=== PATIENT | male | born 1980 | race African-American/Black ===

== ENCOUNTER 2019-10-30 18:33 | Inpatient (IN) | payer BC ==
[2019-10-30 18:45] VITALS: BMI 25.9
[2019-10-30] MEDS ORDERED: Bisacodyl 10 MG SUPP PR PRN (20:36)
[2019-10-30] MEDS ORDERED: Polyethylene Glycol 3350 17 GM Packet PO PRN (20:39)
[2019-10-30] MEDS ORDERED: Haloperidol 1 MG TAB PO PRN (20:39)
[2019-10-30] MEDS: Amlodipine 5 MG TAB PO SCH (21:37)
[2019-10-30] MEDS: Voriconazole 50 MG TAB PO SCH (21:38)
[2019-10-30] MEDS: Docusate 100 MG CAP PO SCH (21:38)
[2019-10-30] MEDS: Metoprolol Tartrate 25 MG TAB PO SCH (21:38)
[2019-10-30] MEDS: Potassium Chloride 20 MEQ TAB PO SCH (21:38)
[2019-10-30] MEDS: Dexamethasone 1 MG TAB PO SCH (21:39)
[2019-10-30] MEDS: Atorvastatin Calcium 20 MG TAB PO SCH (21:39)
[2019-10-31 06:00] LABS: ALT (SGPT) 194 U/L (8-55); AST (SGOT) 32 U/L (5-34); Albumin 3.1 g/dL (3.5-5.0); Alkaline Phosphatase 100 U/L (40-110); Anion Gap 13 mmol/L (10-20); BUN (Urea Nitrogen) 20 mg/dL (8.9-20.6); Bilirubin, Total 0.3 mg/dL (0.2-1.2); Calc. Creatinine Clearance 250 mL/min (70-130); Calcium 8.8 mg/dL (7.8-10.44); Carbon Dioxide 26 mmol/L (22-29); Chloride 110 mmol/L (98-107); Estimated GFR-MDRD Greater than 90; Globulin 2.6 g/dL (2.4-3.5); Glucose 134 mg/dL (70-105); Potassium 3.8 mmol/L (3.5-5.1); Protein, Total 5.7 g/dL (6.0-8.3); Sodium 145 mmol/L (136-145)
[2019-10-31 06:05] LABS: #Basophils 0.1 thou/uL (0.0-0.2); #Lymphocytes 0.3 thou/uL (1.20-3.40); #Monocytes 0.5 thou/uL (0.11-0.59); #Neutrophils 12.6 thou/uL (1.40-6.50); %Basophils 0.6 % (0.0-1.0); %Lymphocytes 2.2 % (21.0-51.0); %Monocytes 3.5 % (0.0-10.0); %Neutrophils 93.7 % (42.0-75.0); Hemoglobin 14.3 g/dL (14.0-18.0); Mean Corpuscular HGB CONC 33.4 g/dL (32.0-36.0); Mean Corpuscular Hemoglobin 29.8 pg (27.0-31.0); Mean Corpuscular Volume 89.2 fL (78.0-98.0); Mean Platelet Volume 11.5 fL (7.4-10.4); Platelet Count 88 thou/uL (130-400); Platelet Morphology Comment Appears Decreased; RBC Distribution Width 11.9 % (11.5-14.5); RBC Morphology Normal; Red Blood Cell (RBC) Count 4.81 mill/uL (4.70-6.10); White Blood Cell (WBC) Count 13.4 thou/uL (4.8-10.8)
[2019-10-31] MEDS ORDERED: FLU VACC QS2019-20(6MOS UP)/PF 60 MCG/0.5 ML SYRINGE IM ONE (09:00)
[2019-10-31] MEDS: Docusate 100 MG CAP PO SCH ×2 (09:52→22:08)
[2019-10-31] MEDS: Dexamethasone 1 MG TAB PO SCH ×2 (09:52→22:08)
[2019-10-31] MEDS: Voriconazole 50 MG TAB PO SCH ×2 (09:52→22:08)
[2019-10-31] MEDS: Potassium Chloride 20 MEQ TAB PO SCH ×2 (09:53→22:08)
[2019-10-31] MEDS: Metoprolol Tartrate 25 MG TAB PO SCH ×2 (09:53→22:08)
[2019-10-31] MEDS: Amlodipine 5 MG TAB PO SCH ×2 (09:53→22:07)
--- NOTE | 2019-10-31 13:45 | HP ---
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 BRIEF HISTORY: This is an unfortunate 39-year-old male, who apparently underwent sinus surgery a few months ago. He apparently has had on and off issues with the sinuses since then and headaches, and presented to the hospital with fever and chills for 2 days with generalized weakness. He apparently has had a visit to the ER 2 weeks after the surgery, where CT scan showed lytic lesions in the sphenoid sinus and was treated with antibiotics. The CT done in the prior admission on October 11 was consistent with meningitis and cerebritis, and was started on vancomycin, cefepime, and antifungals. 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 He unfortunately also developed a cerebral infarction resulting in right-sided weakness. He has been followed by Dr. Duarte, who after completion of his IV amphotericin B has been switched to oral voriconazole. Estimated length of treatment to be at least a few months. The patient is resting in bed and is just oriented to self. No family at bedside. He is able to tolerate p.o. intake. He does have some aphasia. He also was noted to have some encephalopathy from his meningitis and his CVA. PAST MEDICAL HISTORY: Sinus problems requiring surgery. ALLERGIES: NO KNOWN DRUG ALLERGIES. FAMILY HISTORY: Noncontributory to current admission. PSYCHOSOCIAL HISTORY: Denies any tobacco or alcohol or recreational drug abuse. REVIEW OF SYSTEMS: CARDIOVASCULAR: Denies any chest pain, shortness of breath, palpitations, PND, orthopnea, or pedal edema. RESPIRATORY: Denies any chronic cough, expectoration, or pleuritic-type chest pain. GASTROINTESTINAL: Denies any nausea, vomiting, diarrhea, constipation, hematemesis, melena, or hematochezia. GENITOURINARY: Denies any frequency, urgency, dysuria, or hematuria. CENTRAL NERVOUS SYSTEM: Right-sided weakness from his recent CVA, persistent aphasia. Does have some cognitive deficits as well. EXTREMITIES: Denies any arthralgias. SKIN: Denies any rash. HEENT: Denies any difficulty with swallowing or hearing. PHYSICAL EXAMINATION: GENERAL: This is a pleasant 39-year-old male, resting comfortably in bed, and denies any concerns. He is oriented to self. No family at bedside. Discussed with nursing. HEENT: Normocephalic and atraumatic. Pupils are equally reacting to light and accommodation. No JVD, thyromegaly, cervical lymphadenopathy, or throat exudates. No carotid bruits. CARDIOVASCULAR: S1 and S2 plus. RESPIRATORY: Normal vesicular breath sounds. ABDOMEN: Soft, nontender. Bowel sounds heard in all quadrants. EXTREMITIES: Without cyanosis or clubbing. CENTRAL NERVOUS SYSTEM: Awake, oriented to self. Does have persistent dysphagia. He does have right-sided weakness. VITAL SIGNS: He is afebrile. Heart rate is 97, respirations 16, oxygen saturation 96% room air, blood pressure 132/74. LABORATORY DATA: Laboratory values done this morning shows a white count of 13.4 improving, hemoglobin and hematocrit are 14 and 41.1. Sodium 141, potassium 3.9, BUN and creatinine is 19 and 0.53. IMPRESSION: 1. Fungal sinusitis and meningitis. 2. CVA with right-sided weakness. 3. Recent sinus surgery. 4. Weakness and deficits from his CVA requiring therapy. 5. Improving leukocytosis. PLAN: 1. Continue discharge medications. 2. Nutritional support. 3. Monitor neuro status. 4. PT/OT eval and treat. 5. DVT prophylaxis with PlexiPulses. 6. Decubitus precaution. 7. Stress ulcer prophylaxis. 8. Monitor cognition. 9. Discussed with the patient in detail and all questions answered. 10. No family at bedside. Job ID: [id number]
[2019-10-31] MEDS: Atorvastatin Calcium 20 MG TAB PO SCH (22:07)
[2019-11-01] MEDS: Potassium Chloride 20 MEQ TAB PO SCH ×2 (08:40→21:23)
[2019-11-01] MEDS: Amlodipine 5 MG TAB PO SCH ×2 (08:40→21:25)
[2019-11-01] MEDS: Dexamethasone 1 MG TAB PO SCH ×2 (08:40→21:24)
[2019-11-01] MEDS: Docusate 100 MG CAP PO SCH ×2 (08:41→21:25)
[2019-11-01] MEDS: Voriconazole 50 MG TAB PO SCH ×2 (08:41→21:24)
[2019-11-01] MEDS: Metoprolol Tartrate 25 MG TAB PO SCH ×2 (08:42→21:24)
--- NOTE | 2019-11-01 13:40 | PRG ---
DATE OF SERVICE: 11/01/2019 SUBJECTIVE: Mr. Santamaria is up in bed. He is getting ready to participate with therapy. He apparently developed significant tachycardia when they got him up in the chair with occupational therapy and so they put him back in bed probably due to deconditioning and that they need to try GIA hose and then continue to work with him to get his conditioning back up. OBJECTIVE: VITAL SIGNS: He is afebrile, heart rate 74, respirations 16, oxygen saturation 98% on room air, blood pressure 125/74. This was this morning right after occupational therapy, it was 116. CARDIOVASCULAR: S1 and S2 plus. Rate and rhythm regular when I examined him with a heart rate of about 82. RESPIRATORY: Normal vesicular breath sounds. ABDOMEN: Soft, nontender. Bowel sounds heard in all quadrants. EXTREMITIES: Without cyanosis or clubbing. CENTRAL NERVOUS SYSTEM: Residual right-sided weakness with persistent dysphagia. IMPRESSION: 1. Fungal meningitis and sinusitis. 2. Left hemispheric cerebrovascular accident with right-sided weakness and dysphagia. 3. Hypertension. 4. Dyslipidemia. 5. Deconditioning. 6. Sinus tachycardia, likely due to deconditioning. PLAN: 1. Continue current medications. 2. Heart healthy diet. 3. Aspiration precautions. 4. DVT prophylaxis with PlexiPulses. 5. Decubitus precautions. 6. Stress ulcer prophylaxis. 7. Slowly wean him off the steroids. 8. Continue therapy. 9. Routine laboratory values. Job ID: [id number]
[2019-11-01] MEDS: Acetaminophen 500 MG TAB PO PRN (14:53)
[2019-11-01] MEDS: Atorvastatin Calcium 20 MG TAB PO SCH (21:25)
[2019-11-02] MEDS ORDERED: Phenylephrine HCl 0.25% SUPP PR SCH (09:00)
[2019-11-02] MEDS ORDERED: Hydrocortisone Acetate 25 MG Suppository PR SCH (10:00)
[2019-11-02] MEDS: Potassium Chloride 20 MEQ TAB PO SCH ×2 (10:11→21:21)
[2019-11-02] MEDS: Voriconazole 50 MG TAB PO SCH ×2 (10:11→21:22)
[2019-11-02] MEDS: Docusate 100 MG CAP PO SCH ×2 (10:11→21:22)
[2019-11-02] MEDS: Amlodipine 5 MG TAB PO SCH ×2 (10:11→21:22)
[2019-11-02] MEDS: Metoprolol Tartrate 25 MG TAB PO SCH ×2 (10:11→21:22)
[2019-11-02] MEDS: Dexamethasone 1 MG TAB PO SCH ×2 (10:12→21:21)
[2019-11-02] MEDS: Acetaminophen 500 MG TAB PO PRN (12:14)
[2019-11-02] MEDS: Hydrocortisone Acetate 25 MG Suppository PR SCH (21:21)
[2019-11-02] MEDS: Atorvastatin Calcium 20 MG TAB PO SCH (21:22)
[2019-11-03 06:12] LABS: Hemoglobin 14.3 g/dL (14.0-18.0); Lymphocytes 7 % (21-51); MDiff Complete? YES; Mean Corpuscular Hemoglobin 29.2 pg (27.0-31.0); Mean Corpuscular Volume 91.3 fL (78.0-98.0); Mean Platelet Volume 11.4 fL (7.4-10.4); Monocytes 6 % (0-10); Neutrophil 87 % (42-75); Platelet Count 81 thou/uL (130-400); Platelet Morphology Comment Appears Decreased; RBC Distribution Width 12.5 % (11.5-14.5); Red Blood Cell (RBC) Count 4.88 mill/uL (4.70-6.10); Stomatocytes MODERATE= 6-15 cells (100X) (0-1/hpf); White Blood Cell (WBC) Count 10.3 thou/uL (4.8-10.8)
[2019-11-03] MEDS: Voriconazole 50 MG TAB PO SCH ×2 (09:21→21:27)
[2019-11-03] MEDS: Potassium Chloride 20 MEQ TAB PO SCH ×2 (09:21→21:26)
[2019-11-03] MEDS: Dexamethasone 1 MG TAB PO SCH ×2 (09:21→21:26)
[2019-11-03] MEDS: Amlodipine 5 MG TAB PO SCH ×2 (09:21→21:26)
[2019-11-03] MEDS: Metoprolol Tartrate 25 MG TAB PO SCH ×2 (09:22→21:27)
[2019-11-03] MEDS: Docusate 100 MG CAP PO SCH ×2 (09:23→21:27)
[2019-11-03] MEDS: Hydrocortisone Acetate 25 MG Suppository PR SCH ×2 (09:23→21:28)
[2019-11-03] MEDS: Acetaminophen 500 MG TAB PO PRN ×2 (12:56→21:27)
[2019-11-03] MEDS: Atorvastatin Calcium 20 MG TAB PO SCH (21:27)
[2019-11-04] MEDS: Amlodipine 5 MG TAB PO SCH ×2 (08:56→21:53)
[2019-11-04] MEDS: Voriconazole 50 MG TAB PO SCH ×2 (08:56→21:52)
[2019-11-04] MEDS: Potassium Chloride 20 MEQ TAB PO SCH ×2 (08:57→21:51)
[2019-11-04] MEDS: Metoprolol Tartrate 25 MG TAB PO SCH ×2 (08:57→21:52)
[2019-11-04] MEDS: Dexamethasone 1 MG TAB PO SCH ×2 (08:57→21:52)
[2019-11-04] MEDS: Docusate 100 MG CAP PO SCH ×2 (08:58→21:51)
[2019-11-04] MEDS: Hydrocortisone Acetate 25 MG Suppository PR SCH ×2 (08:58→21:51)
--- NOTE | 2019-11-04 16:31 | PRG ---
DATE OF SERVICE: 11/02/2019 SUBJECTIVE: Mr. Santamaria is resting comfortably. No changes. He was noticed to have some bleeding per rectum and I advised them to start him on some Anusol suppository. We will monitor his vital signs and his complete blood counts. OBJECTIVE: VITAL SIGNS: The patient is afebrile. Heart rate is 90, respirations 20, oxygen saturation 97% on room air, blood pressure 120/70. CARDIOVASCULAR: S1 and S2 plus. RESPIRATORY: Normal vesicular breath sounds. ABDOMEN: Soft, nontender. Bowel sounds heard in all quadrants. EXTREMITIES: Without cyanosis or clubbing. CENTRAL NERVOUS SYSTEM: Deficits from his recent left hemispheric CVA. IMPRESSION: 1. Fungal sinusitis and meningitis. 2. CVA with right-sided weakness. 3. Leukocytosis. 4. Bright red bleeding per rectum. 5. Deconditioning. PLAN: 1. Continue current medications. 2. Nutritional support. 3. Trial of Anusol suppository. 4. Check CBC tomorrow. 5. Monitor for any hemodynamic compromise. 6. DVT and stress ulcer prophylaxis. 7. Decubitus precautions. Job ID: [id number]
--- NOTE | 2019-11-04 16:41 | PRG ---
DATE OF SERVICE: 11/03/2019 SUBJECTIVE: Mr. Santamaria is resting in bed. No further issues with bleeding per rectum. He is tolerating the Anusol suppository. No family at bedside. Discussed with nursing. OBJECTIVE: VITAL SIGNS: He is afebrile. Heart rate is 78, respirations 18, oxygen saturation 98% on room air, blood pressure 127/70. CARDIOVASCULAR: S1 and S2 plus. RESPIRATORY: Normal vesicular breath sounds. ABDOMEN: Soft, nontender. Bowel sounds heard in all quadrants. EXTREMITIES: Without cyanosis or clubbing. CENTRAL NERVOUS SYSTEM: Persistent right-sided weakness and dysphasia. LABORATORY VALUES: White count is down to normal at 10.3, hemoglobin and hematocrit are stable at 14.3 and 44.6. BMP was not done. IMPRESSION: 1. Bright red bleeding per rectum, resolved. 2. Right-sided weakness due to left hemispheric CVA. 3. Fungal meningitis and sinusitis. 4. Deconditioning. 5. Resolved leukocytosis. PLAN: 1. Continue current medications. 2. Nutritional support. 3. Monitor neuro status. 4. DVT and stress ulcer prophylaxis. 5. Decubitus precautions. 6. Physical therapy. 7. Routine laboratory values. Job ID: [id number]
--- NOTE | 2019-11-04 16:54 | PRG ---
DATE OF SERVICE: 11/04/2019 SUBJECTIVE: Mr. Santamaria had just finished lunch. He is up in bed. He denies any concerns. Discussed with nursing. OBJECTIVE: VITAL SIGNS: He is afebrile. Heart rate is 86, respirations 18, oxygen saturation 98% on room air, blood pressure 124/79. CARDIOVASCULAR: S1 and S2 plus. RESPIRATORY: Normal vesicular breath sounds. ABDOMEN: Soft, nontender. Bowel sounds heard in all quadrants. EXTREMITIES: Without cyanosis or clubbing. CENTRAL NERVOUS SYSTEM: Persistent right-sided weakness and dysphasia IMPRESSION: 1. Resolving fungal meningitis and sinusitis. 2. Left hemispheric CVA with right-sided weakness and dysphasia 3. Significant deconditioning. PLAN: 1. Continue current medications. 2. Routine laboratory values. 3. Nutritional support. 4. Physical therapy. 5. DVT and stress ulcer prophylaxis. 6. Discussed with the patient and nursing in detail. 7. No family at bedside. Job ID: [id number] MTDD
[2019-11-04] MEDS: Atorvastatin Calcium 20 MG TAB PO SCH (21:53)
[2019-11-04] MEDS: Acetaminophen 500 MG TAB PO PRN (21:53)
[2019-11-05] MEDS: Docusate 100 MG CAP PO SCH ×2 (09:33→21:04)
[2019-11-05] MEDS: Dexamethasone 1 MG TAB PO SCH ×2 (09:33→21:03)
[2019-11-05] MEDS: Potassium Chloride 20 MEQ TAB PO SCH ×2 (09:33→21:03)
[2019-11-05] MEDS: Metoprolol Tartrate 25 MG TAB PO SCH ×2 (09:34→21:04)
[2019-11-05] MEDS: Voriconazole 50 MG TAB PO SCH ×2 (09:34→21:04)
[2019-11-05] MEDS: Hydrocortisone Acetate 25 MG Suppository PR SCH ×2 (09:35→21:03)
[2019-11-05] MEDS: Amlodipine 5 MG TAB PO SCH ×2 (09:35→21:02)
--- NOTE | 2019-11-05 14:00 | PRG ---
DATE OF SERVICE: 11/05/2019 SUBJECTIVE: Mr. Santamaria is up in the hallway, working with the therapy. He does not have his GIA hose on. He is somnolent, but arousable. OBJECTIVE: VITAL SIGNS: He is afebrile. Heart rate 79, respirations 16, oxygen saturation 98% on room air, blood pressure 120/72. CARDIOVASCULAR: S1 and S2 plus. RESPIRATORY: Normal vesicular breath sounds. ABDOMEN: Soft and nontender. Bowel sounds heard in all quadrants. EXTREMITIES: Without cyanosis or clubbing. CENTRAL NERVOUS SYSTEM: Persistent deficits from his left hemispheric CVA and his meningitis. IMPRESSION: 1. Fungal meningitis and sinusitis. 2. Left hemispheric cerebrovascular accident with right-sided weakness and .. 3. Significant deconditioning. 4. Episodes of sinus tachycardia due to deconditioning. PLAN: 1. Reinforced use of GIA hose while up. 2. Nutritional support. 3. DVT and stress ulcer prophylaxis. 4. Decubitus precautions. 5. Continue physical therapy and occupational therapy. 6. Routine laboratory values. 7. No family at bedside. Job ID: [id number]
[2019-11-05] MEDS: Acetaminophen 500 MG TAB PO PRN (21:02)
[2019-11-05] MEDS: Atorvastatin Calcium 20 MG TAB PO SCH (21:03)
[2019-11-06] MEDS: Amlodipine 5 MG TAB PO SCH ×2 (09:50→20:32)
[2019-11-06] MEDS: Docusate 100 MG CAP PO SCH ×2 (09:51→20:33)
[2019-11-06] MEDS: Potassium Chloride 20 MEQ TAB PO SCH ×2 (09:51→20:32)
[2019-11-06] MEDS: Dexamethasone 1 MG TAB PO SCH ×2 (09:52→20:33)
[2019-11-06] MEDS: Voriconazole 50 MG TAB PO SCH ×2 (09:53→20:32)
[2019-11-06] MEDS: Metoprolol Tartrate 25 MG TAB PO SCH ×2 (09:53→20:32)
[2019-11-06] MEDS: Hydrocortisone Acetate 25 MG Suppository PR SCH ×2 (09:57→20:33)
--- NOTE | 2019-11-06 13:29 | PRG ---
DATE OF SERVICE: 11/06/2019 SUBJECTIVE: Mr. Santamaria is doing well. He has been moved up to 145. He just finished lunch. He denies any questions or concerns. Discussed with nursing and no further bleeding per rectum. OBJECTIVE: VITAL SIGNS: He is afebrile. Heart rate 100, respirations 20, oxygen saturation 99% on room air, and blood pressure 130/78. CARDIOVASCULAR SYSTEM: S1 and S2 plus. RESPIRATORY SYSTEM: Normal vesicular breath sounds. ABDOMEN: Soft and nontender. Bowel sounds heard in all quadrants. EXTREMITIES: Without cyanosis or clubbing. CENTRAL NERVOUS SYSTEM: Persistent deficits from his left hemispheric cerebrovascular accident. IMPRESSION: 1. Fungal meningitis and sinusitis. 2. Left hemispheric cerebrovascular accident with right-sided weakness and dysphagia. 3. Significant deconditioning. 4. Improving sinus tachycardia, likely due to improving deconditioning. PLAN: 1. Continue current medications. 2. Nutritional support. 3. DVT and stress ulcer prophylaxis. 4. Continue GIA hose while awake. 5. Physical therapy. 6. Routine laboratory values. Job ID: [id number]
[2019-11-06] MEDS: Atorvastatin Calcium 20 MG TAB PO SCH (20:32)
[2019-11-06] MEDS: Acetaminophen 500 MG TAB PO PRN (20:32)
[2019-11-07] MEDS: Potassium Chloride 20 MEQ TAB PO SCH ×2 (08:41→21:01)
[2019-11-07] MEDS: Voriconazole 50 MG TAB PO SCH ×2 (08:42→21:01)
[2019-11-07] MEDS: Dexamethasone 1 MG TAB PO SCH ×2 (08:42→21:00)
[2019-11-07] MEDS: Docusate 100 MG CAP PO SCH ×2 (08:42→21:00)
[2019-11-07] MEDS: Metoprolol Tartrate 25 MG TAB PO SCH ×2 (08:42→21:01)
[2019-11-07] MEDS: Amlodipine 5 MG TAB PO SCH ×2 (08:43→20:59)
[2019-11-07] MEDS: Hydrocortisone Acetate 25 MG Suppository PR SCH ×2 (08:44→21:01)
--- NOTE | 2019-11-07 12:50 | PRG ---
DATE OF SERVICE: 11/07/2019 SUBJECTIVE: Mr. Santamaria is doing well, just finished lunch. Denies any questions or concerns. No family at bedside. Discussed with nursing. OBJECTIVE: VITAL SIGNS: He is afebrile, heart rate 88, respirations 16, oxygen saturation 96% on room air, blood pressure 126/65. CARDIOVASCULAR SYSTEM: S1 and S2 plus. RESPIRATORY SYSTEM: Normal vesicular breath sounds. ABDOMEN: Soft and nontender. Bowel sounds heard in all quadrants. EXTREMITIES: Without cyanosis or clubbing. CENTRAL NERVOUS SYSTEM: Persistent deficits from his CVA. IMPRESSION: 1. 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 2. Fungal sinusitis and meningitis. 3. Improving sinus tachycardia. PLAN: 1. Continue current medications. 2. Nutritional support. 3. Continue physical therapy. 4. Continue GIA hose. 5. Routine laboratory values. 6. DVT and stress ulcer prophylaxis. Job ID: [id number]
[2019-11-07] MEDS: Atorvastatin Calcium 20 MG TAB PO SCH (21:00)
[2019-11-08] MEDS: Metoprolol Tartrate 25 MG TAB PO SCH ×2 (09:34→21:36)
[2019-11-08] MEDS: Potassium Chloride 20 MEQ TAB PO SCH ×2 (09:34→21:34)
[2019-11-08] MEDS: Voriconazole 50 MG TAB PO SCH ×2 (09:34→21:36)
[2019-11-08] MEDS: Amlodipine 5 MG TAB PO SCH ×2 (09:35→21:36)
[2019-11-08] MEDS: Hydrocortisone Acetate 25 MG Suppository PR SCH ×2 (09:35→21:34)
[2019-11-08] MEDS: Dexamethasone 1 MG TAB PO SCH ×2 (09:35→21:37)
[2019-11-08] MEDS: Docusate 100 MG CAP PO SCH ×2 (09:35→21:34)
--- NOTE | 2019-11-08 13:42 | PRG ---
DATE OF SERVICE: 11/08/2019 SUBJECTIVE: Mr. Santamaria is doing the same. Denies any complaints. Resting comfortably. OBJECTIVE: VITAL SIGNS: He is afebrile. Heart rate 78, respirations 20, oxygen saturation 98% on room air, blood pressure 124/76. CARDIOVASCULAR: S1 and S2 plus. RESPIRATORY: Normal vesicular breath sounds. ABDOMEN: Soft, nontender. Bowel sounds heard in all quadrants. EXTREMITIES: Without cyanosis or clubbing. Peripheral pulses are palpable. CENTRAL NERVOUS SYSTEM: Grossly nonfocal except for persistent deficits from his left hemispheric cerebrovascular accident. IMPRESSION: 1. Left hemispheric cerebrovascular accident with right-sided weakness and dysphagia. 2. Fungal meningitis and sinusitis. 3. Deconditioning. 4. Sinus tachycardia, improving. PLAN: 1. Continue current medications. 2. Nutritional support. 3. Aspiration precautions. 4. Monitor neuro status. 5. Review old records and start titrating his steroids. 6. Continue therapy. 7. Routine laboratory values. Job ID: [id number]
[2019-11-08] MEDS: Atorvastatin Calcium 20 MG TAB PO SCH (21:36)
[2019-11-09] MEDS: Voriconazole 50 MG TAB PO SCH ×2 (08:56→21:31)
[2019-11-09] MEDS: Metoprolol Tartrate 25 MG TAB PO SCH ×2 (08:57→21:29)
[2019-11-09] MEDS: Docusate 100 MG CAP PO SCH ×2 (08:58→21:34)
[2019-11-09] MEDS: Potassium Chloride 20 MEQ TAB PO SCH ×2 (08:58→21:29)
[2019-11-09] MEDS: Dexamethasone 1 MG TAB PO SCH ×2 (08:59→21:32)
[2019-11-09] MEDS: Amlodipine 5 MG TAB PO SCH ×2 (08:59→21:32)
--- NOTE | 2019-11-09 09:03 | PRG ---
DATE OF SERVICE: 11/09/2019 SUBJECTIVE: Mr. Santamaria is up in bed. He just finished breakfast. Remains pleasantly confused. Denies any questions or concerns. Discussed with nursing. OBJECTIVE: VITAL SIGNS: He is afebrile. Heart rate is not posted yet from this morning, but last night it was 111; respiratory rate 20; oxygen saturation 97% on room air; and blood pressure 135/91. CARDIOVASCULAR: S1 and S2 plus. Sinus tachycardia. RESPIRATORY: Normal vesicular breath sounds. ABDOMEN: Soft, nontender. Bowel sounds heard in all quadrants. EXTREMITIES: Without cyanosis or clubbing. CENTRAL NERVOUS SYSTEM: Persistent right-sided weakness. IMPRESSION: 1. Fungal meningitis and sinusitis. 2. 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 3. Hypertension. 4. Dyslipidemia. 5. Deconditioning with sinus tachycardia. PLAN: 1. Continue current medications. 2. Heart healthy diet. 3. DVT prophylaxis with PlexiPulses. 4. Decubitus precautions. 5. Stress ulcer prophylaxis. 6. Continue physical therapy. 7. Routine laboratory values. 8. No family at bedside. Job ID: [id number]
[2019-11-09] MEDS: Atorvastatin Calcium 20 MG TAB PO SCH (21:31)
[2019-11-10] MEDS: Docusate 100 MG CAP PO SCH ×2 (08:32→21:29)
[2019-11-10] MEDS: Metoprolol Tartrate 25 MG TAB PO SCH ×2 (08:32→21:26)
[2019-11-10] MEDS: Potassium Chloride 20 MEQ TAB PO SCH ×2 (08:33→21:26)
[2019-11-10] MEDS: Amlodipine 5 MG TAB PO SCH ×2 (08:33→21:28)
[2019-11-10] MEDS: Dexamethasone 1 MG TAB PO SCH ×2 (08:33→21:29)
[2019-11-10] MEDS: Voriconazole 50 MG TAB PO SCH ×2 (08:34→21:28)
--- NOTE | 2019-11-10 15:12 | PRG ---
DATE OF SERVICE: 11/10/2019 SUBJECTIVE: Mr. Santamaria is doing the same. Resting in bed. Denies any complaints. Still with significant dysphagia and cognitive dysfunction. OBJECTIVE: VITAL SIGNS: He is afebrile. Heart rate 86, respirations 18, oxygen saturation 98% on room air, blood pressure 129/86. CARDIOVASCULAR: S1 and S2 plus. RESPIRATORY: Normal vesicular breath sounds. ABDOMEN: Soft and nontender. Bowel sounds heard in all quadrants. EXTREMITIES: Without cyanosis or clubbing. CENTRAL NERVOUS SYSTEM: Persistent, but improving deficits from his left hemispheric cerebrovascular accident. IMPRESSION: 1. Fungal sinusitis and meningitis. 2. Left hemispheric cerebrovascular accident with right-sided weakness and dysphagia. 3. Hypertension. 4. Dyslipidemia. 5. Deconditioning. PLAN: 1. Continue current medications. 2. Heart healthy diet. 3. Monitor neuro status. 4. Monitor blood pressure and adjust medications as needed. 5. Aspiration precaution. 6. Continue PT, OT. 7. Routine laboratory values. Job ID: [id number]
[2019-11-10] MEDS: Atorvastatin Calcium 20 MG TAB PO SCH (21:29)
[2019-11-11] MEDS: Docusate 100 MG CAP PO SCH ×2 (08:23→21:14)
[2019-11-11] MEDS: Amlodipine 5 MG TAB PO SCH ×2 (08:23→21:14)
[2019-11-11] MEDS: Dexamethasone 1 MG TAB PO SCH ×2 (08:23→21:13)
[2019-11-11] MEDS: Potassium Chloride 20 MEQ TAB PO SCH ×2 (08:24→21:14)
[2019-11-11] MEDS: Voriconazole 50 MG TAB PO SCH ×2 (08:24→21:12)
[2019-11-11] MEDS: Metoprolol Tartrate 25 MG TAB PO SCH ×2 (08:27→21:10)
--- NOTE | 2019-11-11 16:40 | PRG ---
DATE OF SERVICE: 11/11/2019 SUBJECTIVE: Mr. Santamaria is doing the same, resting comfortably. Denies any concerns. No family at bedside. Discussed with nursing. OBJECTIVE: VITAL SIGNS: He is afebrile. Heart rate is 114, respirations 18, oxygen saturation 99% on room air, blood pressure 124/85. This was again from 8:00 this morning. On examination, his heart rate is 72. CARDIOVASCULAR: S1 and S2 plus. RESPIRATORY: Normal vesicular breath sounds. ABDOMEN: Soft, nontender. Bowel sounds heard in all quadrants. EXTREMITIES: Without cyanosis or clubbing. CENTRAL NERVOUS SYSTEM: Persistent right-sided weakness and . IMPRESSION: 1. Resolving fungal meningitis and sinusitis. 2. Hypertension. 3. Dyslipidemia. 4. Left hemispheric CVA with improving right-sided weakness and and deconditioning with episodes of sinus tachycardia. PLAN: 1. Continue current medications. 2. Heart healthy diet. 3. Monitor neuro status. 4. Physical therapy. 5. Decubitus precautions. 6. Routine laboratory values. 7. Aspiration precautions. 8. Monitor cognition. Job ID: [id number]
[2019-11-11] MEDS: Atorvastatin Calcium 20 MG TAB PO SCH (21:13)
[2019-11-12] MEDS: Docusate 100 MG CAP PO SCH ×2 (08:39→21:32)
[2019-11-12] MEDS: Amlodipine 5 MG TAB PO SCH ×2 (08:39→21:31)
[2019-11-12] MEDS: Potassium Chloride 20 MEQ TAB PO SCH ×2 (08:40→21:31)
[2019-11-12] MEDS: Voriconazole 50 MG TAB PO SCH ×2 (08:41→21:31)
[2019-11-12] MEDS: Metoprolol Tartrate 25 MG TAB PO SCH ×2 (08:41→21:31)
--- NOTE | 2019-11-12 13:30 | PRG ---
DATE OF SERVICE: 11/12/2019 SUBJECTIVE: Mr. Santamaria apparently had an episode of what seems like vasovagal syncope while he was working with therapy. He is pretty much back to his baseline. He is responding better. He is able to answer yes and no now, whereas before he was unable to do so. Encouraged nursing to make sure the patient drinks plenty of fluids. OBJECTIVE: VITAL SIGNS: He is afebrile. Heart rate 115, respirations 18, oxygen saturation 98% on room air, blood pressure 93/50. CARDIOVASCULAR: S1 and S2 plus. RESPIRATORY: Normal vesicular breath sounds. ABDOMEN: Soft, nontender. Bowel sounds heard in all quadrants. EXTREMITIES: Without cyanosis or clubbing. CENTRAL NERVOUS SYSTEM: Persistent deficits from his left hemispheric CVA. IMPRESSION: 1. Hypertension. 2. Dyslipidemia. 3. Fungal meningitis and sinusitis. 4. Left hemispheric cerebrovascular accident with improving right-sided weakness and episode of possible syncope. PLAN: 1. Check labs today, BMP, and CBC. 2. Encourage p.o. fluid intake. 3. Continue therapy. 4. Continue GIA hose. 5. Nutritional support. 6. Discussed with the patient and nursing in detail. All questions answered. Job ID: [id number]
[2019-11-12 14:13] LABS: Anion Gap 17 mmol/L (10-20); BUN (Urea Nitrogen) 40 mg/dL (8.9-20.6); Calc. Creatinine Clearance 158 mL/min (70-130); Calcium 9.4 mg/dL (7.8-10.44); Carbon Dioxide 20 mmol/L (22-29); Chloride 112 mmol/L (98-107); Estimated GFR-MDRD Greater than 90; Glucose 386 mg/dL (70-105); Potassium 5.2 mmol/L (3.5-5.1); Sodium 144 mmol/L (136-145)
[2019-11-12 17:44] LABS: Mean Corpuscular HGB CONC 32.7 g/dL (32.0-36.0); Mean Corpuscular Hemoglobin 29.2 pg (27.0-31.0); Mean Corpuscular Volume 89.3 fL (78.0-98.0); Mean Platelet Volume 9.3 fL (7.4-10.4); Platelet Count 102 thou/uL (130-400); RBC Distribution Width 12.5 % (11.5-14.5); Red Blood Cell (RBC) Count 5.14 mill/uL (4.70-6.10); White Blood Cell (WBC) Count 12.2 thou/uL (4.8-10.8)
[2019-11-12 17:47] LABS: Band 4 % (5-11); Lymphocytes 16 % (21-51); MDiff Complete? YES; Monocytes 4 % (0-10); Neutrophil 76 % (42-75); Platelet Morphology Comment Appears Decreased; RBC Morphology Normal
[2019-11-12] MEDS: Atorvastatin Calcium 20 MG TAB PO SCH (21:31)
[2019-11-13] MEDS ORDERED: Dextrose 50% Abboject 50 ML SYRINGE IVP PRN (06:40)
[2019-11-13] MEDS ORDERED: HumaLOG 300 UNITS/3 ML VIAL SC PRN (06:40)
[2019-11-13] MEDS ORDERED: Dextrose 5% in Water 1,000 ML IV PRN (06:40)
[2019-11-13] MEDS: Potassium Chloride 20 MEQ TAB PO SCH ×2 (09:00→21:13)
[2019-11-13] MEDS: Voriconazole 50 MG TAB PO SCH ×2 (09:00→21:12)
[2019-11-13] MEDS: Docusate 100 MG CAP PO SCH ×2 (09:01→21:13)
[2019-11-13] MEDS: Amlodipine 5 MG TAB PO SCH ×2 (09:01→21:12)
[2019-11-13] MEDS: Metoprolol Tartrate 25 MG TAB PO SCH ×2 (09:01→21:13)
[2019-11-13] MEDS: HumaLOG 300 UNITS/3 ML VIAL SC PRN ×2 (11:19→17:07)
[2019-11-13 12:03] LABS: Hemoglobin A1c 6.8 % (4.0-6.0)
--- NOTE | 2019-11-13 13:19 | PRG ---
DATE OF SERVICE: 11/13/2019 SUBJECTIVE: Mr. Santamaria is doing the same. Denies any complaints. Routine labs done yesterday showed a blood sugar of 371 and his fasting was 168, probably it was related to his steroids. He is currently off his steroids, but I advised them to do A1c as well as do sliding scale coverage. OBJECTIVE: VITAL SIGNS: He is afebrile. Heart rate is 111, blood pressure 130 /84, respirations 18, and oxygen saturation 97%. CARDIOVASCULAR SYSTEM: S1 and S2 plus sinus tachycardia. RESPIRATORY SYSTEM: Normal vesicular breath sounds. ABDOMEN: Soft and nontender. Bowel sounds heard in all quadrants. EXTREMITIES: Without cyanosis or clubbing. CENTRAL NERVOUS SYSTEM: Persistent right-sided weakness, but improving dysphasia. LABORATORY DATA: His A1c is back and it is at 6.8, so we will start him on metformin 500 mg b.i.d. and change his diet to 1800 calorie heart healthy ADA diet. IMPRESSION: 1. Fungal sinusitis and meningitis. 2. Hypertension. 3. Dyslipidemia. 4. Steroid-induced hyperglycemia versus new onset diabetes mellitus. 5. 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 PLAN: 1. Continue current medications. 2. Add metformin 500 mg b.i.d. 3. Change diet to 1800 calorie heart healthy. 4. Accu-Cheks with sliding scale coverage. 5. Continue physical therapy. 6. Routine laboratory values. 7. Discussed with the patient and nursing in detail. All questions answered. Job ID: [id number] MTDD
[2019-11-13] MEDS: metFORMIN 500 MG TAB PO SCH (17:07)
[2019-11-13] MEDS: Acetaminophen 500 MG TAB PO PRN (17:20)
[2019-11-13] MEDS: Atorvastatin Calcium 20 MG TAB PO SCH (21:13)
[2019-11-14] MEDS: Metoprolol Tartrate 25 MG TAB PO SCH ×2 (09:42→21:58)
[2019-11-14] MEDS: Potassium Chloride 20 MEQ TAB PO SCH ×2 (09:42→21:57)
[2019-11-14] MEDS: Amlodipine 5 MG TAB PO SCH ×2 (09:43→21:58)
[2019-11-14] MEDS: Docusate 100 MG CAP PO SCH ×2 (09:43→21:59)
[2019-11-14] MEDS: metFORMIN 500 MG TAB PO SCH ×2 (09:44→16:39)
[2019-11-14] MEDS: Voriconazole 50 MG TAB PO SCH ×2 (09:44→21:57)
--- NOTE | 2019-11-14 12:01 | PRG ---
DATE OF SERVICE: 11/14/2019 SUBJECTIVE: Mr. Santamaria is doing the same. Denies any complaints. Tolerating his medications. His blood sugars are still high. He was just started on the metformin. He is still on Ensure supplements. I advised them to change it to Glucerna and change his diet to consistent carb. He is also on a sliding scale. OBJECTIVE: VITAL SIGNS: He is afebrile. Heart rate 80, respirations 18, oxygen saturation 96% on room air, blood pressure 129/64. CARDIOVASCULAR SYSTEM: S1-S2 plus. RESPIRATORY SYSTEM: Normal vesicular breath sounds. ABDOMEN: Soft, nontender. Bowel sounds heard in all quadrants. EXTREMITIES: Without cyanosis, clubbing. CENTRAL NERVOUS SYSTEM: Persistent right-sided weakness. IMPRESSION: 1. Diabetes mellitus, type 2, new onset. 2. Hypertension. 3. Dyslipidemia. 4. Fungal meningitis and sinusitis. 5. 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 PLAN: 1. Continue current medications. 2. 1800 calorie heart-healthy ADA diet. 3. Accu-Cheks with sliding scale coverage. 4. May need sulfonylurea as given his thin stature. He may not have as much issues with insulin resistance. 5. Continue physical therapy. 6. DVT and stress ulcer prophylaxis. 7. Routine laboratory values. Job ID: [id number]
[2019-11-14] MEDS: HumaLOG 300 UNITS/3 ML VIAL SC PRN (12:15)
[2019-11-14] MEDS ORDERED: HumaLOG 300 UNITS/3 ML VIAL SC SCH (12:15)
[2019-11-14] MEDS: Atorvastatin Calcium 20 MG TAB PO SCH (21:57)
[2019-11-15] MEDS: Amlodipine 5 MG TAB PO SCH ×2 (08:27→21:19)
[2019-11-15] MEDS: Potassium Chloride 20 MEQ TAB PO SCH ×2 (08:27→21:19)
[2019-11-15] MEDS: Voriconazole 50 MG TAB PO SCH ×2 (08:27→21:18)
[2019-11-15] MEDS: Metoprolol Tartrate 25 MG TAB PO SCH ×2 (08:27→21:19)
[2019-11-15] MEDS: Docusate 100 MG CAP PO SCH ×2 (08:27→21:19)
[2019-11-15] MEDS: metFORMIN 500 MG TAB PO SCH ×2 (08:27→16:21)
[2019-11-15] MEDS: HumaLOG 300 UNITS/3 ML VIAL SC PRN (12:41)
--- NOTE | 2019-11-15 13:11 | PRG ---
DATE OF SERVICE: 11/15/2019 SUBJECTIVE: Mr. Santamaria is doing well. His blood sugars are much improved. He is tolerating his medications. OBJECTIVE: VITAL SIGNS: He is afebrile. Heart rate 110, respirations 18, oxygen saturation 98% on room air, blood pressure 109/64. CARDIOVASCULAR: S1 and S2 plus. RESPIRATORY: Normal vesicular breath sounds. ABDOMEN: Soft, nontender. Bowel sounds heard in all quadrants. EXTREMITIES: Without cyanosis or clubbing. CENTRAL NERVOUS SYSTEM: Persistent right-sided weakness. LABORATORY DATA: Blood sugars are 99, 174, 118, and 156. IMPRESSION: 1. Diabetes mellitus, new onset. 2. Hypertension. 3. Dyslipidemia. 4. Fungal meningitis and sinusitis. 5. Left hemispheric CVA with right-sided weakness. PLAN: 1. Continue current medications. 2. 1800 calorie heart healthy ADA diet. 3. Accu-Cheks with sliding scale coverage. 4. Continue physical therapy. 5. Routine laboratory values. 6. We will call his mom, Loan, and give her an update. Job ID: [id number]
[2019-11-15] MEDS: Acetaminophen 500 MG TAB PO PRN (16:21)
[2019-11-15] MEDS: Atorvastatin Calcium 20 MG TAB PO SCH (21:19)
[2019-11-16 05:47] LABS: #Basophils 0.1 thou/uL (0.0-0.2); #Monocytes 0.5 thou/uL (0.11-0.59); #Neutrophils 5.1 thou/uL (1.40-6.50); %Eosinophils 0.4 % (0.0-10.0); %Lymphocytes 14.5 % (21.0-51.0); %Monocytes 6.9 % (0.0-10.0); %Neutrophils 77.2 % (42.0-75.0); Hemoglobin 12.7 g/dL (14.0-18.0); Large Platelets SLIGHT; MDiff Complete? YES; Mean Corpuscular HGB CONC 32.6 g/dL (32.0-36.0); Mean Corpuscular Hemoglobin 28.7 pg (27.0-31.0); Mean Corpuscular Volume 88.1 fL (78.0-98.0); Mean Platelet Volume 11.3 fL (7.4-10.4); Platelet Count 81 thou/uL (130-400); Platelet Morphology Comment Appears Decreased; RBC Distribution Width 12.1 % (11.5-14.5); Red Blood Cell (RBC) Count 4.43 mill/uL (4.70-6.10); White Blood Cell (WBC) Count 6.6 thou/uL (4.8-10.8)
[2019-11-16 06:02] LABS: Anion Gap 14 mmol/L (10-20); BUN (Urea Nitrogen) 18 mg/dL (8.9-20.6); Calc. Creatinine Clearance 220 mL/min (70-130); Calcium 8.9 mg/dL (7.8-10.44); Carbon Dioxide 25 mmol/L (22-29); Chloride 103 mmol/L (98-107); Estimated GFR-MDRD Greater than 90; Glucose 91 mg/dL (70-105); Potassium 4.6 mmol/L (3.5-5.1); Sodium 137 mmol/L (136-145)
[2019-11-16] MEDS: Potassium Chloride 20 MEQ TAB PO SCH ×2 (08:47→21:55)
[2019-11-16] MEDS: Amlodipine 5 MG TAB PO SCH ×2 (08:47→21:55)
[2019-11-16] MEDS: Voriconazole 50 MG TAB PO SCH ×2 (08:47→21:55)
[2019-11-16] MEDS: Docusate 100 MG CAP PO SCH ×2 (08:47→21:56)
[2019-11-16] MEDS: Metoprolol Tartrate 25 MG TAB PO SCH ×2 (08:48→21:55)
[2019-11-16] MEDS: metFORMIN 500 MG TAB PO SCH ×2 (08:48→17:25)
--- NOTE | 2019-11-16 08:50 | PRG ---
DATE OF SERVICE: 11/16/2019 SUBJECTIVE: Mr. Santamaria is up in bed just finishing breakfast. He denies any questions or concerns. I had a long discussion with his mother yesterday, and I advised her that he has been diagnosed with new onset diabetes. All questions answered. She states her plan is to try to take home when he is done with therapy here. OBJECTIVE: VITAL SIGNS: He is afebrile, heart rate 118, respirations 18, oxygen saturation 100% on room air, and blood pressure 122/76. CARDIOVASCULAR SYSTEM: S1 and S2 plus sinus tachycardia. RESPIRATORY SYSTEM: Normal vesicular breath sounds. ABDOMEN: Soft, nontender. Bowel sounds heard in all quadrants. EXTREMITIES: Without cyanosis or clubbing. CENTRAL NERVOUS SYSTEM: Right-sided weakness with improving dysphasia. LABORATORY VALUES: White count is 6.6, H and H are 12.7 and 39. Sodium 137, potassium 4.6, BUN and creatinine are 18 and 0.59. Blood sugars are 118, 156, 115, and 133. IMPRESSION: 1. Diabetes mellitus, type 2, new onset, excellent control. 2. Hypertension. 3. Dyslipidemia. 4. Fungal meningitis and sinusitis. 5. Left hemispheric cerebrovascular accident with right-sided weakness and dysphasia. PLAN: 1. Continue current medications. 2. 1800 calorie heart healthy ADA diet. 3. Accu-Cheks with sliding scale coverage. 4. Monitor blood pressure and adjust medications as needed. 5. Physical therapy. 6. DVT and stress ulcer prophylaxis. 7. Decubitus precautions. 8. I advised his mother to contact community service director every Tuesday afternoon to get an update on the case conference. Job ID: [id number]
[2019-11-16] MEDS: HumaLOG 300 UNITS/3 ML VIAL SC PRN ×2 (12:00→17:25)
[2019-11-16] MEDS: Acetaminophen 500 MG TAB PO PRN (21:55)
[2019-11-16] MEDS: Atorvastatin Calcium 20 MG TAB PO SCH (21:55)
[2019-11-17] MEDS: Potassium Chloride 20 MEQ TAB PO SCH ×2 (08:27→21:13)
[2019-11-17] MEDS: Metoprolol Tartrate 25 MG TAB PO SCH ×2 (08:27→21:12)
[2019-11-17] MEDS: Voriconazole 50 MG TAB PO SCH ×2 (08:27→21:11)
[2019-11-17] MEDS: Amlodipine 5 MG TAB PO SCH ×2 (08:28→21:12)
[2019-11-17] MEDS: metFORMIN 500 MG TAB PO SCH ×2 (08:28→17:00)
[2019-11-17] MEDS: Docusate 100 MG CAP PO SCH ×2 (08:29→21:13)
[2019-11-17] MEDS: Atorvastatin Calcium 20 MG TAB PO SCH (21:13)
[2019-11-18] MEDS: metFORMIN 500 MG TAB PO SCH ×2 (08:43→17:18)
[2019-11-18] MEDS: Potassium Chloride 20 MEQ TAB PO SCH ×2 (08:43→21:14)
[2019-11-18] MEDS: Voriconazole 50 MG TAB PO SCH ×2 (08:43→21:16)
[2019-11-18] MEDS: Docusate 100 MG CAP PO SCH ×2 (08:44→21:14)
[2019-11-18] MEDS: Amlodipine 5 MG TAB PO SCH ×2 (08:44→21:15)
[2019-11-18] MEDS: Metoprolol Tartrate 25 MG TAB PO SCH ×2 (08:44→21:14)
[2019-11-18] MEDS: Atorvastatin Calcium 20 MG TAB PO SCH (21:14)
[2019-11-19] MEDS: metFORMIN 500 MG TAB PO SCH ×2 (08:54→17:46)
[2019-11-19] MEDS: Potassium Chloride 20 MEQ TAB PO SCH ×2 (08:55→21:14)
[2019-11-19] MEDS: Metoprolol Tartrate 25 MG TAB PO SCH ×2 (08:55→21:14)
[2019-11-19] MEDS: Docusate 100 MG CAP PO SCH ×2 (08:55→21:14)
[2019-11-19] MEDS: Amlodipine 5 MG TAB PO SCH ×2 (08:55→21:15)
[2019-11-19] MEDS: Voriconazole 50 MG TAB PO SCH ×2 (10:17→21:14)
--- NOTE | 2019-11-19 10:48 | PRG ---
DATE OF SERVICE: 11/19/2019 SUBJECTIVE: Mr. Santamaria is resting in bed. He just finished breakfast. He is waiting on therapy. No family at bedside. Discussed with Nursing. OBJECTIVE: VITAL SIGNS: He is afebrile. Heart rate is 124, respirations 20, oxygen saturation 98% on room air, blood pressure 135/83. CARDIOVASCULAR: S1, S2 plus. RESPIRATORY: Normal vesicular breath sounds. ABDOMEN: Soft. Bowel sounds heard in all quadrants. EXTREMITIES: Without cyanosis or clubbing. CENTRAL NERVOUS SYSTEM: Stable right-sided deficits. LABORATORY DATA: Blood sugars are great at 135, 94, 151, 126, 97, and 102. IMPRESSION: 1. Resolving fungal meningitis and sinusitis. 2. Hypertension. 3. Dyslipidemia. 4. Diabetes mellitus, type 2. 5. Recent left hemispheric cerebrovascular accident with right-sided weakness. 6. Fluctuating sinus tachycardia. PLAN: 1. Continue current medications. 2. Nutritional support with 1800-calorie heart healthy ADA diet. 3. Accu-Cheks with sliding scale coverage. 4. DVT prophylaxis. 5. Decubitus precautions. 6. Physical therapy. 7. Routine laboratory values. Job ID: [id number]
[2019-11-19] MEDS: Acetaminophen 500 MG TAB PO PRN ×2 (17:46→21:14)
[2019-11-19] MEDS: Atorvastatin Calcium 20 MG TAB PO SCH (21:15)
[2019-11-20] MEDS: Docusate 100 MG CAP PO SCH ×2 (08:53→20:59)
[2019-11-20] MEDS: Potassium Chloride 20 MEQ TAB PO SCH ×2 (08:53→20:59)
[2019-11-20] MEDS: Voriconazole 50 MG TAB PO SCH ×2 (08:53→20:58)
[2019-11-20] MEDS: metFORMIN 500 MG TAB PO SCH ×2 (08:53→17:33)
[2019-11-20] MEDS: Metoprolol Tartrate 25 MG TAB PO SCH ×2 (08:54→20:59)
[2019-11-20] MEDS: Amlodipine 5 MG TAB PO SCH ×2 (08:54→20:59)
[2019-11-20] MEDS: Acetaminophen 500 MG TAB PO PRN ×2 (08:54→20:58)
[2019-11-20] MEDS: HumaLOG 300 UNITS/3 ML VIAL SC PRN ×2 (11:50→17:34)
--- NOTE | 2019-11-20 12:08 | PRG ---
DATE OF SERVICE: 11/20/2019 SUBJECTIVE: Mr. Santamaria is resting in bed. Denies any complaints. Discussed with nursing, and he apparently did not eat very well. Spoke with Therapy and they state that he has been declining since yesterday and today apparently not doing much with therapy, not following commands very much when I talked to him. He did follow commands. Continues to have significant right-sided weakness. We will order a stat CT brain without and with contrast just to make sure there is nothing new going on. Also ordered a stat CBC and CMP. OBJECTIVE: VITAL SIGNS: He is afebrile, heart rate 110, respirations 20, oxygen saturation 98% on room air, blood pressure 120/62. CARDIOVASCULAR: S1 and S2 plus. RESPIRATORY: Normal vesicular breath sounds. ABDOMEN: Soft, nontender. Bowel sounds heard in all quadrants. EXTREMITIES: Without cyanosis or clubbing. CENTRAL NERVOUS SYSTEM: Still with persistent right-sided weakness and dysphagia. I do not see anything new other than his head being holding it to the left. LABORATORY DATA: Blood sugars are great at 102, 164, 102, 136, 96, and 172. IMPRESSION: 1. Diabetes mellitus, type 2, new onset. 2. Hypertension. 3. Dyslipidemia. 4. 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 5. Resolving fungal meningitis and sinusitis. PLAN: 1. Stat CT brain without and with contrast to rule out any acute intracranial pathology. 2. Stat CBC and CMP. 3. 1800-calorie heart healthy ADA diet. 4. Accu-Cheks with sliding scale coverage. 5. Continue therapy. 6. Discussed with the patient and nursing. Job ID: [id number]
[2019-11-20 13:07] LABS: ALT (SGPT) 101 U/L (8-55); AST (SGOT) 42 U/L (5-34); Albumin 2.8 g/dL (3.5-5.0); Alkaline Phosphatase 107 U/L (40-110); Anion Gap 15 mmol/L (10-20); BUN (Urea Nitrogen) 21 mg/dL (8.9-20.6); Bilirubin, Total 0.3 mg/dL (0.2-1.2); Calc. Creatinine Clearance 203 mL/min (70-130); Calcium 8.8 mg/dL (7.8-10.44); Carbon Dioxide 23 mmol/L (22-29); Chloride 110 mmol/L (98-107); Estimated GFR-MDRD Greater than 90; Globulin 2.9 g/dL (2.4-3.5); Glucose 129 mg/dL (70-105); Potassium 4.4 mmol/L (3.5-5.1); Protein, Total 5.7 g/dL (6.0-8.3); Sodium 144 mmol/L (136-145)
[2019-11-20 13:09] LABS: Mean Corpuscular HGB CONC 32.6 g/dL (32.0-36.0); Mean Corpuscular Hemoglobin 28.9 pg (27.0-31.0); Mean Corpuscular Volume 88.6 fL (78.0-98.0); Mean Platelet Volume 9.3 fL (7.4-10.4); Platelet Count 127 thou/uL (130-400); RBC Distribution Width 12.2 % (11.5-14.5); Red Blood Cell (RBC) Count 3.82 mill/uL (4.70-6.10)
[2019-11-20 13:10] LABS: MDiff Complete? YES
[2019-11-20 13:11] LABS: Anisocytosis SLIGHT = 6-15 cells (100X) (0-5/hpf); Hypochromia SLIGHT = 6-15 cells (100X) (0-5/hpf); Lymphocytes 13 % (21-51); Monocytes 8 % (0-10); Neutrophil 79 % (42-75); Platelet Morphology Comment Appears Decreased
--- NOTE | 2019-11-20 13:19 | CT ---
CT HEAD WITHOUT CONTRAST: Indications: Deteriorating neurologic status. Comparison: 10-23-2019, 10-18-2019, MRI 10-12-2019 FINDINGS: There has been progression of the diffuse communicating hydrocephalus. All ventricles have increased in size when compared to the recent exam. Third ventricle previously measured approximately 1.2 cm wi [facility] whereas today it measures approximately 1.6 cm width. Increasing periventricular lucency has occurred with diffuse sulcal effacement involving entire cereb rum indicating increased intracranial pressure. There is effacement of the basilar cisterns. Numerous areas of infarction had previously showed areas of lucency in the deep white matter. No midl ine shift. IMPRESSION: Evidence of increased diffuse intracranial pressure with increasing hydrocephalus when compared to re cent exam. POS: BELLO
[2019-11-20] MEDS: Atorvastatin Calcium 20 MG TAB PO SCH (20:59)
[2019-11-21 07:07] VITALS: BP 125/67; TEMP 97
[2019-11-21] MEDS: metFORMIN 500 MG TAB PO SCH (08:16)
[2019-11-21] MEDS: Amlodipine 5 MG TAB PO SCH (08:47)
[2019-11-21] MEDS: Metoprolol Tartrate 25 MG TAB PO SCH (08:48)
[2019-11-21] MEDS: Docusate 100 MG CAP PO SCH (08:48)
[2019-11-21] MEDS: Potassium Chloride 20 MEQ TAB PO SCH (08:49)
[2019-11-21] MEDS: Voriconazole 50 MG TAB PO SCH (08:49)
--- NOTE | 2019-11-21 10:55 | DIS ---
DATE OF ADMISSION: 10/30/2019 DATE OF DISCHARGE: 11/21/2019 PRINCIPAL DIAGNOSIS: Resolving fungal meningitis and sinusitis. SECONDARY DIAGNOSES: 1. Gradual deterioration in his cognition and functional status with increase in communicating hydrocephalus. 2. Plan is to place external ventricular drain and monitor patient. 3. History of left hemispheric cerebrovascular accident with right-sided weakness. 4. Hypertension. 5. Dyslipidemia. 6. Diabetes mellitus, new onset. COMPLICATIONS: None. ADVERSE REACTIONS: None. PROCEDURES: CT scan of the brain. CONSULTATIONS: None. HOSPITAL COURSE: The patient was admitted as a transfer from [facility] in [place] after recent episode of fungal meningitis and sinusitis. He also unfortunately developed a left hemispheric cerebrovascular accident with right-sided weakness and dysphagia. He was transferred here on oral voriconazole for therapy. Initially, he was able to respond with only one word and most of the time he did not make any sense and was not appropriate. He has improved gradually to the point that he was able to maintain a conversation and functioning was able to feed himself and improving. Unfortunately, over the last two days, therapy told me yesterday that over the last two days they have noticed a functional decline. He still responded to me and followed my commands but was responding to me only with one or two word answers. I did a CT brain which showed worsening of his communicating hydrocephalus. This has been gradually increasing since October 11. I spoke with Neurosurgery and they felt that he at this time may benefit from an external ventricular drain and if improvement, then possibly a FLORAL DESIGNER shunt. I spoke with him last evening and the decision they felt that it would be best for him to be just admitted directly if possible and not go through the ER and so, the plan was to send him this morning but if he deteriorated, then we will send him to the ER overnight. He did well and he is being transferred today. Unfortunately, there apparently was some confusion as some people were asking why he was not transferred yesterday and there is no stroke bed and he needs to go to CCU and there is no direct admits to CCU and I tried to explain to them again. Per my conversation, this was not emergent that he needed to be transferred yesterday. It was an emergent elective procedure, which could wait till today. Neurosurgery felt that it is best that he transfer directly, but apparently now they are going to do the EVD in the ER and then transferring him to CCU. I informed his mother and she is going to call the ER in a couple of hours in [place] to get an update. On the day of discharge, he is afebrile. Heart rate is 111, sinus tachycardia, respirations 18, oxygen saturation 95% on room air, blood pressure 125/67. Cardiovascular system; S1-S2 plus. Respiratory, sinus tachycardia. Respiratory system, normal vesicular breath sounds. Abdomen; soft, nontender. Bowel sounds heard in all quadrants. Extremities without cyanosis or clubbing. Central nervous system, no change in mentation. Still responds to questions and commands. Still has dense right hemiplegia. IMPRESSION: 1. Worsening communicating hydrocephalus with gradual decline in his functional status. 2. Right hemispheric cerebrovascular accident with left-sided weakness. 3. Fungal meningitis and sinusitis. 4. Hypertension. 5. Dyslipidemia. 6. Diabetes mellitus, new onset. PLAN: Discharge to ER in [place]. Both hospitalist ER physician and Neurosurgery informed and aware. He has been kept n.p.o. this morning. He will be followed by the hospitalist service and he will be transferred back when stable. For full details, please see chart. Job ID: [id number]
== END 2019-11-21 09:41 | disposition short-term general hospital (02) | DRG 56 ==
LOC: NAV ACUTE 18:33
PROVIDERS: ADMIT Internal Medicine; ATTEND Internal Medicine
DX: I69.351 Hemiplegia and hemiparesis following cerebral infarction affecting right dominant side (principal); B37.5 Candidal meningitis; G91.9 Hydrocephalus, unspecified; K62.5 Hemorrhage of anus and rectum; J32.9 Chronic sinusitis, unspecified; I10 Essential (primary) hypertension; E78.5 Hyperlipidemia, unspecified; R13.10 Dysphagia, unspecified; R00.0 Tachycardia, unspecified; R53.81 Other malaise; E11.9 Type 2 diabetes mellitus without complications; I69.391 Dysphagia following cerebral infarction
CPT/HCPCS: 36415; 36416; 70470; 80048; 80053; 83036; 85025; J8540

== ENCOUNTER 2019-12-01 17:54 | Inpatient (IN) | payer BC, OTHER ==
[2019-12-01] MEDS ORDERED: HumaLOG 300 UNITS/3 ML VIAL SC PRN (19:51)
[2019-12-01] MEDS ORDERED: Dextrose 5% in Water 1,000 ML IV PRN (19:51)
[2019-12-01] MEDS ORDERED: Dextrose 50% Abboject 50 ML SYRINGE IVP PRN (19:52)
[2019-12-01] MEDS ORDERED: Bisacodyl 10 MG SUPP PR PRN (20:07)
[2019-12-01] MEDS ORDERED: Polyethylene Glycol 3350 17 GM Packet PO PRN (20:08)
[2019-12-01] MEDS: Atorvastatin Calcium 20 MG TAB PO SCH (20:50)
[2019-12-01] MEDS: Voriconazole 50 MG TAB PO SCH (20:50)
[2019-12-01] MEDS: Metoprolol Tartrate 25 MG TAB PO SCH (20:51)
[2019-12-01] MEDS: Amlodipine 5 MG TAB PO SCH (20:51)
[2019-12-01] MEDS: Docusate 100 MG CAP PO SCH (20:52)
[2019-12-02 05:20] LABS: #Basophils 0.1 thou/uL (0.0-0.2); #Eosinphils 0.1 thou/uL (0.0-0.7); #Monocytes 0.6 thou/uL (0.11-0.59); #Neutrophils 3.4 thou/uL (1.40-6.50); %Basophils 1.7 % (0.0-1.0); %Eosinophils 1.2 % (0.0-10.0); %Lymphocytes 19.6 % (21.0-51.0); %Neutrophils 65.5 % (42.0-75.0); Mean Corpuscular HGB CONC 33.3 g/dL (32.0-36.0); Mean Corpuscular Hemoglobin 29.4 pg (27.0-31.0); Mean Corpuscular Volume 88.2 fL (78.0-98.0); Mean Platelet Volume 6.8 fL (7.4-10.4); Platelet Count 209 thou/uL (130-400); RBC Distribution Width 12.7 % (11.5-14.5); Red Blood Cell (RBC) Count 3.05 mill/uL (4.70-6.10); White Blood Cell (WBC) Count 5.1 thou/uL (4.8-10.8)
[2019-12-02 05:48] LABS: ALT (SGPT) 16 U/L (8-55); AST (SGOT) 19 U/L (5-34); Albumin 2.6 g/dL (3.5-5.0); Alkaline Phosphatase 107 U/L (40-110); Anion Gap 12 mmol/L (10-20); BUN (Urea Nitrogen) 6 mg/dL (8.9-20.6); Bilirubin, Total 0.3 mg/dL (0.2-1.2); Calc. Creatinine Clearance 268 mL/min (70-130); Calcium 8.3 mg/dL (7.8-10.44); Carbon Dioxide 28 mmol/L (22-29); Chloride 105 mmol/L (98-107); Estimated GFR-MDRD Greater than 90; Globulin 2.6 g/dL (2.4-3.5); Glucose 87 mg/dL (70-105); Potassium 3.8 mmol/L (3.5-5.1); Protein, Total 5.2 g/dL (6.0-8.3); Sodium 141 mmol/L (136-145)
[2019-12-02] MEDS: metFORMIN 500 MG TAB PO SCH ×2 (07:40→08:38)
[2019-12-02] MEDS: Voriconazole 50 MG TAB PO SCH ×2 (08:36→21:13)
[2019-12-02] MEDS: Amlodipine 5 MG TAB PO SCH ×2 (08:37→21:17)
[2019-12-02] MEDS: Docusate 100 MG CAP PO SCH ×2 (08:37→21:13)
[2019-12-02] MEDS: Metoprolol Tartrate 25 MG TAB PO SCH ×2 (08:38→21:13)
[2019-12-02] MEDS ORDERED: Prevnar 13-Val Conj/PF 0.5 ML SYRINGE IM ONE (09:00)
--- NOTE | 2019-12-02 11:20 | HP ---
LOCATION: [facility], [place], room 145. PRINCIPAL DIAGNOSIS: Worsening communicating hydrocephalus with altered mental status, requiring SCIENCE TUTOR shunt placement. 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 He was sent here for therapy, and initially, he was able to answer commands only with an answer of yes for everything, who progress to the point that he was able to feed himself. He was able to respond appropriately with yes and no and have simple conversations, then was noticed to have a decline in his mental status. A stat CT was done, which showed worsening of his communicating hydrocephalus. He was transferred to [facility] in [place], where he initially underwent an external ventricular drain, which caused complete resolution of his symptoms, so he underwent a SCIENCE TUTOR shunt placement. He also was diagnosed with bilateral lower extremity DVT and underwent an IVC filter placement through internal jugular access. He will need to be on anticoagulation, and I will check with Neurosurgery on Tuesday to see when he will be cleared. He was felt to be stable enough to come back and continue therapy. Currently, he is resting in bed, and unfortunately, he is responding only with yes for all his questions, which is how he was when he first came to us. He is not in any distress. He apparently is able to feed himself according to the sign-out I got yesterday. No family at bedside. I discussed with nursing. PHYSICAL EXAMINATION: GENERAL: He is awake and responsive. VITAL SIGNS: T-max is 100.1, pulse 104, respirations 20, oxygen saturation 94% on room air, blood pressure 116/73. HEENT: Normocephalic. Pupils are equally reacting to light. NECK: No JVD, thyromegaly, cervical lymphadenopathy, or throat exudates. No carotid bruits. CARDIOVASCULAR: S1 and S2 plus. RESPIRATORY: Normal vesicular breath sounds. ABDOMEN: Soft and nontender. Bowel sounds heard in all quadrants. EXTREMITIES: Without cyanosis or clubbing. Trace edema, worse on the right. CENTRAL NERVOUS SYSTEM: Awake and responsive. Persistent right-sided weakness and mild dysphagia. LABORATORY DATA: Laboratory values done this morning show a white count of 5.1, H and H are 9 and 26.9. Sodium 141, potassium 3.8, BUN and creatinine 6 and 0.46, blood sugar was 103. IMPRESSION: 1. Diabetes mellitus, type 2, new onset. 2. Hypertension. 3. Dyslipidemia. 4. 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 5. Fungal meningitis and sinusitis. 6. Worsening communicating hydrocephalus requiring ventriculoperitoneal shunt placement. 7. Bilateral lower extremity deep venous thrombosis requiring inferior vena cava filter placement. PLAN: 1. Continue current medications. 2. 1800-calorie heart-healthy ADA diet. 3. Accu-Cheks with sliding scale coverage. 4. Monitor blood pressure and adjust medications as needed. 5. Avoid PlexiPulses. 6. Get clearance from Neurosurgery as to when we can start anticoagulation. 7. PT and OT eval and treat. 8. Resume medications including voriconazole and metformin. 9. Routine laboratory values. 10. Discussed with the patient and nursing in detail. All questions answered. Job ID: [id number]
[2019-12-02] MEDS: Atorvastatin Calcium 20 MG TAB PO SCH (21:13)
[2019-12-03] MEDS: Acetaminophen 500 MG TAB PO PRN ×3 (06:10→20:47)
[2019-12-03] MEDS: Voriconazole 50 MG TAB PO SCH ×2 (08:20→21:28)
[2019-12-03] MEDS: Docusate 100 MG CAP PO SCH ×2 (08:20→21:28)
[2019-12-03] MEDS: metFORMIN 500 MG TAB PO SCH (08:21)
[2019-12-03] MEDS: Metoprolol Tartrate 25 MG TAB PO SCH ×2 (08:21→21:29)
[2019-12-03] MEDS: Amlodipine 5 MG TAB PO SCH ×2 (08:21→21:29)
--- NOTE | 2019-12-03 13:05 | PRG ---
DATE OF SERVICE: 12/03/2019 SUBJECTIVE: Mr. Santamaria is up in bed eating lunch. He responds better to questions today. Discussed with nursing, no concerns or questions. OBJECTIVE: VITAL SIGNS: He is afebrile. Heart rate 106, respirations 18, oxygen saturation 96% on room air, blood pressure 113/63. CARDIOVASCULAR: S1, S2 plus. RESPIRATORY: Normal vesicular breath sounds. ABDOMEN: Soft, nontender, bowel sounds in all quadrants. EXTREMITIES: Without cyanosis or clubbing. CENTRAL NERVOUS SYSTEM: Persistent right-sided weakness. IMPRESSION: 1. Recent worsening of communicating hydrocephalus requiring EXAM PROCTOR shunt placement. 2. Fungal meningitis and sinusitis. 3. 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 4. New onset diabetes mellitus type 2. 5. Hypertension. 6. Dyslipidemia. PLAN: 1. Continue current medications. 2. 1800 calorie heart healthy ADA diet. 3. Accu-Cheks with sliding scale coverage. 4. He also had bilateral DVT and does have an IVC filter. We will check with Neurosurgery to see when we can start him on anticoagulation. 5. Physical Therapy. 6. Routine laboratory values. 7. Discussed with the patient and nursing in detail. All questions answered. Job ID: [id number]
[2019-12-03] MEDS: Atorvastatin Calcium 20 MG TAB PO SCH (21:28)
[2019-12-03 21:43] LABS: Bilirubin Negative (Negative); Blood, Urine Negative (Negative); Glucose, Urine (Dipstick) Negative (Negative); Leukocyte Moderate (Negative); Nitrite Negative (Negative); Protein, Urine (Dipstick) Negative (Neg-Trace)
[2019-12-03 21:46] LABS: Clarity SL HAZY (Clear)
[2019-12-03 21:53] LABS: RBC/HPF 0-3 HPF (0-3); Squamous Epithelial 0-3 HPF (0-3)
[2019-12-03 21:54] LABS: Bacteria/HPF Rare-Few HPF (None Seen); Urine Culture Reflex Yes Yes
[2019-12-04] MEDS: Acetaminophen 500 MG TAB PO PRN ×2 (04:28→18:29)
[2019-12-04 05:51] LABS: #Basophils 0.2 thou/uL (0.0-0.2); #Lymphocytes 1.1 thou/uL (1.20-3.40); #Monocytes 0.6 thou/uL (0.11-0.59); #Neutrophils 4.6 thou/uL (1.40-6.50); %Basophils 2.6 % (0.0-1.0); %Eosinophils 0.4 % (0.0-10.0); %Lymphocytes 16.3 % (21.0-51.0); %Monocytes 9.6 % (0.0-10.0); %Neutrophils 71.1 % (42.0-75.0); Hemoglobin 9.1 g/dL (14.0-18.0); Mean Corpuscular HGB CONC 34.1 g/dL (32.0-36.0); Mean Corpuscular Hemoglobin 29.8 pg (27.0-31.0); Mean Corpuscular Volume 87.3 fL (78.0-98.0); Mean Platelet Volume 7.6 fL (7.4-10.4); Platelet Count 218 thou/uL (130-400); RBC Distribution Width 13.2 % (11.5-14.5); Red Blood Cell (RBC) Count 3.05 mill/uL (4.70-6.10); White Blood Cell (WBC) Count 6.4 thou/uL (4.8-10.8)
[2019-12-04 06:03] LABS: Anion Gap 14 mmol/L (10-20); BUN (Urea Nitrogen) 9 mg/dL (8.9-20.6); Calc. Creatinine Clearance 257 mL/min (70-130); Calcium 8.1 mg/dL (7.8-10.44); Carbon Dioxide 25 mmol/L (22-29); Chloride 105 mmol/L (98-107); Estimated GFR-MDRD Greater than 90; Glucose 94 mg/dL (70-105); Potassium 3.7 mmol/L (3.5-5.1); Sodium 140 mmol/L (136-145)
--- NOTE | 2019-12-04 06:44 | RAD ---
AP CHEST: HISTORY: Sepsis. COMPARISON: 08/25/2019. FINDINGS: Mild cardiomegaly is stable. There is mild vascular congestion which is more prominent than on the p rior exam. Central line overlies the SVC. No focal consolidation or significant effusion. IMPRESSION: Vascular congestion more pronounced than on the prior exam. POS: AGW
[2019-12-04] MEDS: Metoprolol Tartrate 25 MG TAB PO SCH ×2 (09:00→21:04)
[2019-12-04] MEDS: metFORMIN 500 MG TAB PO SCH (09:00)
[2019-12-04] MEDS: Voriconazole 50 MG TAB PO SCH ×2 (09:01→21:05)
[2019-12-04] MEDS: Docusate 100 MG CAP PO SCH ×2 (09:01→21:05)
[2019-12-04] MEDS: Amlodipine 5 MG TAB PO SCH ×2 (09:01→21:04)
--- NOTE | 2019-12-04 12:19 | PRG ---
DATE OF SERVICE: 12/04/2019 SUBJECTIVE: Mr. Santamaria is resting in bed. Denies any complaints. More responsive. He does have a Morin catheter in. He did develop a temperature of 101.4 last night and had a sepsis workup. Blood cultures and urine cultures are pending. Chest x-ray does not show any infiltrates. Lactic acid level was normal. No cough or respiratory symptoms noted. I am thinking this is possibly related to his Morin catheter and I have advised the nursing to remove it today. OBJECTIVE: VITAL SIGNS: His temperature currently is 99.8, pulse of 112, respirations 20, oxygen saturation 95% on room air, blood pressure 124/71. CARDIOVASCULAR: S1 and S2 plus, sinus tachycardia. RESPIRATORY: Normal vesicular breath sounds. ABDOMEN: Soft, nontender. Bowel sounds heard in all quadrants. EXTREMITIES: Without cyanosis or clubbing. CENTRAL NERVOUS SYSTEM: Persistent right-sided weakness, improving speech. LABORATORY DATA: Chest x-ray is read as possibly some pulmonary vascular congestion and central line in place, but I think they are mistaking the PRESS TECHNICIAN shunt drainage catheter. IMPRESSION: 1. Communicating hydrocephalus requiring PRESS TECHNICIAN shunt placement. 2. Fungal meningitis and sinusitis. 3. Bilateral lower extremity deep venous thrombosis. 4. Hypertension. 5. Dyslipidemia. 6. Diabetes mellitus, type 2. 7. Fever, unknown etiology. PLAN: 1. Continue current medications. 2. Hold off on empiric antibiotics. 3. Await urine culture. 4. Discontinue Morin catheter. 5. We will discuss with Neurosurgery today about when we can start him on anticoagulation. 6. Continue therapy. 7. Nutritional support. 8. Routine laboratory values. 9. Discussed with the patient and nursing in detail. All questions answered. Job ID: [id number]
[2019-12-04] MEDS: Atorvastatin Calcium 20 MG TAB PO SCH (21:04)
[2019-12-05] MEDS: Amlodipine 5 MG TAB PO SCH ×2 (08:37→21:02)
[2019-12-05] MEDS: Voriconazole 50 MG TAB PO SCH ×2 (08:37→21:01)
[2019-12-05] MEDS: metFORMIN 500 MG TAB PO SCH (08:37)
[2019-12-05] MEDS: Docusate 100 MG CAP PO SCH ×2 (08:38→21:03)
[2019-12-05] MEDS: Metoprolol Tartrate 25 MG TAB PO SCH ×2 (08:38→21:02)
--- NOTE | 2019-12-05 10:45 | PRG ---
DATE OF SERVICE: 12/05/2019 SUBJECTIVE: Mr. Santamaria is doing great. His Morin catheter has been removed. He is responding more appropriately. No concerns or questions. No further fever and on looking back the fever may have been related to his Pneumovax. OBJECTIVE: VITAL SIGNS: He is afebrile. Heart rate 109, respirations 18, oxygen saturation 94% on room air, and blood pressure 134/65. CARDIOVASCULAR SYSTEM: S1 and S2 plus. RESPIRATORY SYSTEM: Normal vesicular breath sounds. ABDOMEN: Soft and nontender. Bowel sounds heard in all quadrants. EXTREMITIES: Without cyanosis or clubbing. CENTRAL NERVOUS SYSTEM: Persistent right-sided weakness. LABORATORY DATA: Blood sugars are 104, 127, 126, and 93. IMPRESSION: 1. Hypertension. 2. Dyslipidemia. 3. Diabetes mellitus, type 2, new onset. 4. Fungal meningitis and sinusitis. 5. 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 6. Deep venous thrombosis, lower extremity. PLAN: 1. Continue current medications. 2. Nutritional support with 1800-calorie heart healthy ADA diet. 3. Accu-Cheks with sliding scale coverage. 4. We will check with Neurosurgery as to when we can start anticoagulation. 5. Continue PT and OT. 6. Routine laboratory values. Job ID: [id number]
[2019-12-05] MEDS: Atorvastatin Calcium 20 MG TAB PO SCH (21:03)
[2019-12-06] MEDS: Amlodipine 5 MG TAB PO SCH ×2 (08:33→21:14)
[2019-12-06] MEDS: Voriconazole 50 MG TAB PO SCH ×2 (08:33→21:14)
[2019-12-06] MEDS: Docusate 100 MG CAP PO SCH ×2 (08:33→21:14)
[2019-12-06] MEDS: metFORMIN 500 MG TAB PO SCH (08:33)
[2019-12-06] MEDS: Metoprolol Tartrate 25 MG TAB PO SCH ×2 (08:34→21:14)
--- NOTE | 2019-12-06 12:32 | PRG ---
DATE OF SERVICE: 12/06/2019 SUBJECTIVE: Mr. Santamaria is doing well. He denies any complaints. He is doing well with therapy. He continues to have sinus tachycardia. Discussed with nursing and therapy. OBJECTIVE: VITAL SIGNS: He is afebrile. Heart rate is 113, blood pressure 124/82, oxygen saturation 97% on room air, and respiratory rate is 18. CARDIOVASCULAR SYSTEM: S1 and S2 plus. Sinus tachycardia. RESPIRATORY SYSTEM: Normal vesicular breath sounds. ABDOMEN: Soft and nontender. Bowel sounds heard in all quadrants. EXTREMITIES: Cyanosis or clubbing. CENTRAL NERVOUS SYSTEM: Persistent right-sided weakness. IMPRESSION: 1. Resolving fungal meningitis and sinusitis. 2. 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 3. Worsening communicating hydrocephalus requiring ARTILLERY OR NAVAL GUNFIRE OBSERVER shunt placement. 4. Bilateral deep vein thrombosis. 5. Diabetes mellitus type 2. 6. Hypertension. 7. Dyslipidemia. PLAN: 1. Continue current medications. 2. 1800 calorie heart healthy ADA diet. 3. Accu-Cheks with sliding scale coverage. 4. I left a message for Uche Gu yesterday about when to start him on anticoagulation due to recent ARTILLERY OR NAVAL GUNFIRE OBSERVER shunt and I also sent him a Tigertext today, have not heard back yet. 5. Routine laboratory values. 6. Continue therapy. Job ID: [id number]
[2019-12-06] MEDS: Atorvastatin Calcium 20 MG TAB PO SCH (21:16)
[2019-12-06] MEDS: Apixaban 5 MG TAB PO SCH (21:16)
[2019-12-07] MEDS: Apixaban 5 MG TAB PO SCH ×2 (08:44→21:55)
[2019-12-07] MEDS: Amlodipine 5 MG TAB PO SCH ×2 (08:44→21:54)
[2019-12-07] MEDS: Metoprolol Tartrate 25 MG TAB PO SCH ×2 (08:44→21:55)
[2019-12-07] MEDS: metFORMIN 500 MG TAB PO SCH (08:45)
[2019-12-07] MEDS: Docusate 100 MG CAP PO SCH ×2 (08:45→21:55)
[2019-12-07] MEDS: Voriconazole 50 MG TAB PO SCH ×2 (08:48→21:54)
--- NOTE | 2019-12-07 10:13 | PRG ---
DATE OF SERVICE: 12/07/2019 SUBJECTIVE: Mr. Santamaria is actually working with therapy. He is complaining of right leg pain. There is swelling in his right leg related to his DVT. He has been cleared by Neurosurgery to start on anticoagulation and he is now on Eliquis 5 mg b.i.d. He also has Tylenol for pain. OBJECTIVE: VITAL SIGNS: He is afebrile. Heart rate 104, respirations 20, oxygen saturation 94% on room air, blood pressure 118/69. CARDIOVASCULAR: S1 and S2 plus. RESPIRATORY: Normal vesicular breath sounds. ABDOMEN: Soft, nontender. Bowel sounds heard in all quadrants. EXTREMITIES: Without cyanosis or clubbing. CENTRAL NERVOUS SYSTEM: Persistent right-sided weakness. Improving dysphasia. LABORATORY DATA: Blood sugars are well controlled at 118, 133, 132, 114, 125, and 95. IMPRESSION: 1. Diabetes mellitus type 2. 2. Hypertension. 3. Dyslipidemia. 4. Left hemispheric CVA with right-sided weakness. 5. Improving fungal sinusitis and meningitis. 6. Bilateral deep venous thrombosis, status post IVC filter placement. PLAN: 1. Change Accu-Cheks to b.i.d. since it is under excellent control. 2. 1800 calorie heart healthy ADA diet. 3. Continue Eliquis. 4. Routine laboratory values. 5. Physical therapy. 6. Monitor neuro status. Job ID: [id number]
[2019-12-07] MEDS: Atorvastatin Calcium 20 MG TAB PO SCH (21:56)
[2019-12-08] MEDS: metFORMIN 500 MG TAB PO SCH (08:19)
[2019-12-08] MEDS: Amlodipine 5 MG TAB PO SCH ×2 (08:19→20:36)
[2019-12-08] MEDS: Docusate 100 MG CAP PO SCH ×2 (08:19→20:35)
[2019-12-08] MEDS: Apixaban 5 MG TAB PO SCH ×2 (08:19→20:32)
[2019-12-08] MEDS: Metoprolol Tartrate 25 MG TAB PO SCH ×2 (08:20→20:32)
[2019-12-08] MEDS: Voriconazole 50 MG TAB PO SCH ×2 (08:20→20:35)
[2019-12-08] MEDS: Atorvastatin Calcium 20 MG TAB PO SCH (20:32)
[2019-12-09] MEDS ORDERED: Ciprofloxacin 500 MG TAB PO SCH (07:00)
[2019-12-09] MEDS: Amlodipine 5 MG TAB PO SCH ×2 (08:14→20:43)
[2019-12-09] MEDS: metFORMIN 500 MG TAB PO SCH (08:14)
[2019-12-09] MEDS: Docusate 100 MG CAP PO SCH ×2 (08:15→20:45)
[2019-12-09] MEDS: Apixaban 5 MG TAB PO SCH ×2 (08:15→20:45)
[2019-12-09] MEDS: Voriconazole 50 MG TAB PO SCH ×2 (08:15→20:43)
[2019-12-09] MEDS: Metoprolol Tartrate 25 MG TAB PO SCH ×2 (09:00→20:44)
[2019-12-09] MEDS: Atorvastatin Calcium 20 MG TAB PO SCH (20:43)
[2019-12-09] MEDS: Ciprofloxacin 500 MG TAB PO SCH (20:45)
--- NOTE | 2019-12-09 21:03 | PRG ---
DATE OF SERVICE: 12/09/2019 SUBJECTIVE: The patient is lying in bed, watching TV. He is awake and alert, in no distress. OBJECTIVE: VITAL SIGNS: Show temperature 98, pulse 117, respirations 18, O2 saturations 94% on room air, blood pressure is 127/97. LUNGS: Clear. CARDIAC: Shows regular rhythm. ABDOMEN: Soft, nontender. SKIN/EXTREMITIES: Show no edema. Accu-Cheks ranged from 88 to 166. ASSESSMENT: 1. Resolving fungal meningitis, on voriconazole. 2. Klebsiella urinary tract infection, on Cipro. 3. Type 2 diabetes, controlled to goal. 4. Hypertension, controlled to goal. 5. Persistent tachycardia, appears to be sinus. 6. Hydrocephalus with COMMUNITY ADVOCATE shunt infection, stable. PLAN: 1. Continue PT, OT. 2. Continue voriconazole. 3. Continue Cipro. 4. Obtain EKG tomorrow. 5. Continue stress ulcer prophylaxis. 6. Continue Accu-Cheks to monitor and titrate and control diabetes. Job ID: [id number]
--- NOTE | 2019-12-09 21:10 | PRG ---
DATE OF SERVICE: 12/08/2019 SUBJECTIVE: The patient is a 39-year-old black male with a history of hypertension, diabetes, subsequent CVA with right-sided weakness, and fungal meningitis and sinusitis, as well as bilateral DVTs, who is slowly improving on Eliquis and voriconazole for his DVT and meningitis, he is working somewhat with therapy. OBJECTIVE: VITAL SIGNS: Temperature 99.8, pulse 111, respirations 20, O2 sats 93% on room air, and blood pressure 118/58. LUNGS: Clear. CARDIAC: Regular rhythm. ABDOMEN: Soft and nontender. SKIN/EXTREMITIES: No edema, clubbing or cyanosis. NEUROLOGICAL: Right hemiplegia. LABORATORY DATA: Urine culture shows Klebsiella, sensitive to Cipro. ASSESSMENT: 1. Klebsiella urinary tract infection. We will start on Cipro. 2. Hypertension, controlled to goal. 3. Left hemispheric cerebrovascular accident with stable right-sided weakness. 4. Resolving fungal meningitis, on voriconazole. 5. Improving DVT, status post IVC placement and Eliquis. PLAN: 1. Continue PT/OT. 2. Start Cipro 500 twice daily. 3. Continue voriconazole. 4. Continue Eliquis b.i.d. 5. Continue Accu-Cheks to monitor and titrate and control diabetes. Job ID: [id number]
[2019-12-10 05:21] LABS: Hemoglobin 10.4 g/dL (14.0-18.0); Platelet Count 282 thou/uL (130-400)
[2019-12-10] MEDS: Ciprofloxacin 500 MG TAB PO SCH ×2 (05:27→20:33)
[2019-12-10] MEDS: Voriconazole 50 MG TAB PO SCH ×2 (07:52→20:32)
[2019-12-10] MEDS: Docusate 100 MG CAP PO SCH ×2 (07:56→20:32)
[2019-12-10] MEDS: Metoprolol Tartrate 25 MG TAB PO SCH ×2 (07:56→20:31)
[2019-12-10] MEDS: Amlodipine 5 MG TAB PO SCH ×2 (07:57→20:33)
[2019-12-10] MEDS: Apixaban 5 MG TAB PO SCH ×2 (07:57→20:33)
[2019-12-10] MEDS: metFORMIN 500 MG TAB PO SCH (07:58)
--- NOTE | 2019-12-10 13:33 | PRG ---
DATE OF SERVICE: 12/10/2019 SUBJECTIVE: Mr. Santamaria is up in his chair. He just finished lunch. He denies any questions or concerns. He is happy with his progress. OBJECTIVE: VITAL SIGNS: He has a T-max of 100.1, pulse is 107, respirations 18, oxygen saturation 92% on room air, blood pressure 131/81. CARDIOVASCULAR: S1 and S2 plus. RESPIRATORY: Normal vesicular breath sounds. ABDOMEN: Soft, nontender. Bowel sounds heard in all quadrants. EXTREMITIES: Without cyanosis or clubbing. CENTRAL NERVOUS SYSTEM: Improving deconditioning and right-sided weakness. IMPRESSION: 1. Resolving fungal sinusitis and meningitis. 2. Left hemispheric CVA with right-sided weakness. 3. Worsening communicating hydrocephalus requiring SIGNAL TIMER shunt placement. 4. Fever with possible urinary tract infection. 5. Bilateral lower extremity deep venous thrombosis. 6. Negative blood cultures. 7. Hypertension. 8. Dyslipidemia. 9. Diabetes mellitus type 2. PLAN: 1. Continue current medications. He is currently on Cipro for presumed UTI. 2. Heart healthy ADA diet. 3. Accu-Cheks with sliding scale coverage. 4. DVT prophylaxis - he is on Eliquis. 5. Decubitus precautions. 6. Stress ulcer prophylaxis. 7. Aspiration precautions. 8. Physical therapy. 9. Monitor his temperature and for any other signs or symptoms of infection. Job ID: [id number]
[2019-12-10] MEDS: Atorvastatin Calcium 20 MG TAB PO SCH (20:33)
[2019-12-11] MEDS: Ciprofloxacin 500 MG TAB PO SCH ×2 (05:14→20:44)
[2019-12-11] MEDS: metFORMIN 500 MG TAB PO SCH (08:42)
[2019-12-11] MEDS: Apixaban 5 MG TAB PO SCH ×2 (08:42→20:44)
[2019-12-11] MEDS: Voriconazole 50 MG TAB PO SCH ×2 (08:42→20:43)
[2019-12-11] MEDS: Metoprolol Tartrate 25 MG TAB PO SCH ×2 (08:43→20:44)
[2019-12-11] MEDS: Amlodipine 5 MG TAB PO SCH ×2 (08:43→20:44)
[2019-12-11] MEDS: Docusate 100 MG CAP PO SCH ×2 (08:43→20:44)
[2019-12-11] MEDS: HumaLOG 300 UNITS/3 ML VIAL SC PRN (13:08)
--- NOTE | 2019-12-11 18:33 | PRG ---
DATE OF SERVICE: SUBJECTIVE: Mr. Santamaria is up in his chair. Denies any complaints. Resting comfortably. Happy with his progress, discussed with nursing. OBJECTIVE: VITAL SIGNS: Heart rate is 110, blood pressure 116/66, respirations 18, oxygen saturation 93% on room air. CARDIOVASCULAR SYSTEM: S1 and S2 plus sinus tachycardia. RESPIRATORY SYSTEM: Normal vesicular breath sounds. ABDOMEN: Soft, nontender. Bowel sounds heard in all quadrants. EXTREMITIES: Without cyanosis or clubbing. CENTRAL NERVOUS SYSTEM: Persistent right-sided weakness. HEENT: Shows healed scalp incision. Tawny are ready to come out. IMPRESSION: 1. Worsening communicating hydrocephalus requiring ADULT BASIC EDUCATION INSTRUCTOR shunt placement. 2. 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 3. Fungal meningitis and sinusitis. 4. Diabetes mellitus, type 2. 5. Hypertension. 6. Dyslipidemia. 7. Improving deconditioning. PLAN: 1. Continue current medications. 2. 1800-calorie heart-healthy ADA diet. 3. Accu-Cheks with sliding scale coverage. His blood sugars are 141, 109, 129, 95, 178, and 84. 4. DVT prophylaxis, he is on Eliquis. He actually has bilateral DVT. 5. Continue PT/OT. 6. Monitor neuro status. 7. Routine laboratory values. Job ID: [id number]
[2019-12-11] MEDS: Atorvastatin Calcium 20 MG TAB PO SCH (20:44)
[2019-12-12] MEDS: Ciprofloxacin 500 MG TAB PO SCH ×2 (05:06→20:13)
[2019-12-12] MEDS: metFORMIN 500 MG TAB PO SCH (08:34)
[2019-12-12] MEDS: Docusate 100 MG CAP PO SCH ×2 (08:34→20:14)
[2019-12-12] MEDS: Apixaban 5 MG TAB PO SCH ×2 (08:34→20:13)
[2019-12-12] MEDS: Voriconazole 50 MG TAB PO SCH ×2 (08:34→20:15)
[2019-12-12] MEDS: Metoprolol Tartrate 25 MG TAB PO SCH ×2 (08:34→20:14)
[2019-12-12] MEDS: Amlodipine 5 MG TAB PO SCH ×2 (08:35→20:13)
--- NOTE | 2019-12-12 13:13 | PRG ---
DATE OF SERVICE: 12/12/2019 SUBJECTIVE: Mr. Santamaria is doing the same. Denies any complaints. His david were removed yesterday. He is happy with his progress. No family at bedside. OBJECTIVE: VITAL SIGNS: He is afebrile. Heart rate 99, respirations 20, oxygen saturation 96% on room air, blood pressure 115/66. CARDIOVASCULAR: S1 and S2 plus. RESPIRATORY: Normal vesicular breath sounds. ABDOMEN: Soft and nontender. Bowel sounds heard in all quadrants. EXTREMITIES: Without cyanosis or clubbing. CENTRAL NERVOUS SYSTEM: Persistent right-sided weakness. IMPRESSION: 1. Status post ventriculoperitoneal shunt placement for worsening communicating hydrocephalus. 2. 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 3. Improving fungal sinusitis and meningitis. 4. Diabetes mellitus, type 2. 5. Hypertension. 6. Dyslipidemia. PLAN: 1. Continue current medications. 2. 1800-calorie heart healthy ADA diet. 3. Accu-Cheks with sliding scale coverage. 4. DVT prophylaxis. He is on Eliquis since he has bilateral DVT. 5. Decubitus precautions. 6. Stress ulcer prophylaxis. 7. Physical therapy. 8. Routine laboratory values. Job ID: [id number]
[2019-12-12] MEDS: Atorvastatin Calcium 20 MG TAB PO SCH (20:14)
[2019-12-13] MEDS: Ciprofloxacin 500 MG TAB PO SCH ×2 (06:06→21:02)
[2019-12-13] MEDS: Apixaban 5 MG TAB PO SCH ×2 (08:13→21:03)
[2019-12-13] MEDS: Docusate 100 MG CAP PO SCH ×2 (08:13→21:03)
[2019-12-13] MEDS: metFORMIN 500 MG TAB PO SCH (08:13)
[2019-12-13] MEDS: Voriconazole 50 MG TAB PO SCH ×2 (08:13→21:02)
[2019-12-13] MEDS: Metoprolol Tartrate 25 MG TAB PO SCH ×2 (08:14→21:02)
[2019-12-13] MEDS: Amlodipine 5 MG TAB PO SCH ×2 (08:15→21:02)
--- NOTE | 2019-12-13 14:26 | PRG ---
DATE OF SERVICE: 12/13/2019 SUBJECTIVE: Mr. Santamaria is doing well. He apparently kind of slid down to the floor because he over estimated his ability to walk. He had no injuries noted. He is on neuro checks. Currently lying in bed, talking to his family over the phone. OBJECTIVE: VITAL SIGNS: He is afebrile, heart rate is 114, respiratory rate is 18, oxygen saturation 95% on room air, and blood pressure 121/69. CARDIOVASCULAR SYSTEM: S1 and S2 plus. RESPIRATORY SYSTEM: Normal vesicular breath sounds. ABDOMEN: Soft, nontender. Bowel sounds heard in all quadrants. EXTREMITIES: Without cyanosis or clubbing. CENTRAL NERVOUS SYSTEM: Persistent right-sided weakness, but much improved dysphagia. IMPRESSION: 1. Resolving fungal sinusitis and meningitis. 2. 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 3. 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 4. Diabetes mellitus, type 2. 5. Hypertension. 6. Dyslipidemia. 7. Bilateral deep venous thrombosis, status post inferior vena cava filter placement. PLAN: 1. Continue current medications. 2. 1800-calorie, heart healthy, ADA diet. 3. Accu-Cheks with sliding scale coverage. 4. DVT prophylaxis - he is actually on Eliquis 5 mg b.i.d. 5. Monitor cognition and neuro status. 6. Continue therapy. 7. Routine laboratory values. Job ID: [id number]
[2019-12-13] MEDS: Atorvastatin Calcium 20 MG TAB PO SCH (21:03)
[2019-12-14] MEDS: Ciprofloxacin 500 MG TAB PO SCH ×2 (06:11→20:25)
[2019-12-14] MEDS: Metoprolol Tartrate 25 MG TAB PO SCH ×2 (08:26→20:25)
[2019-12-14] MEDS: Voriconazole 50 MG TAB PO SCH ×2 (08:28→20:24)
[2019-12-14] MEDS: Amlodipine 5 MG TAB PO SCH ×2 (08:28→20:25)
[2019-12-14] MEDS: Apixaban 5 MG TAB PO SCH ×2 (08:29→20:24)
[2019-12-14] MEDS: metFORMIN 500 MG TAB PO SCH (08:29)
[2019-12-14] MEDS: Docusate 100 MG CAP PO SCH ×2 (08:29→20:24)
[2019-12-14] MEDS: Acetaminophen 500 MG TAB PO PRN (08:31)
--- NOTE | 2019-12-14 10:34 | PRG ---
DATE OF SERVICE: 12/14/2019 SUBJECTIVE: Mr. Santamaria is improving. He is still not safe enough to go home. He is tolerating his diet. His speech is much improved. OBJECTIVE: VITAL SIGNS: He is afebrile. Heart rate is 110, respirations 18, oxygen saturation 97% on room air, blood pressure 136/77. CARDIOVASCULAR: S1 and S2 plus. RESPIRATORY: Normal vesicular breath sounds. ABDOMEN: Soft, nontender. Bowel sounds heard in all quadrants. EXTREMITIES: Without cyanosis or clubbing. IMPRESSION: 1. Resolving fungal sinusitis and meningitis. 2. Diabetes mellitus type 2, new onset. 3. Hypertension. 4. Dyslipidemia. 5. Left hemispheric CVA with right-sided weakness and status post FOOD CHECKERS AND CASHIERS SUPERVISOR shunt placement for worsening communicating hydrocephalus. PLAN: 1. Continue current medications. 2. 1800 calorie heart healthy ADA diet. 3. Accu-Cheks with sliding scale coverage. 4. DVT prophylaxis. The patient actually has bilateral DVT and is on Eliquis. He also has an IVC filter. 5. Stress ulcer prophylaxis. 6. Decubitus precautions. 7. Continue therapy. 8. Routine laboratory values. 9. Discharge planning. Job ID: [id number]
[2019-12-14] MEDS: Atorvastatin Calcium 20 MG TAB PO SCH (20:25)
[2019-12-15] MEDS: Ciprofloxacin 500 MG TAB PO SCH ×2 (05:28→20:47)
--- NOTE | 2019-12-15 07:11 | PRG ---
DATE OF SERVICE: 12/15/2019 SUBJECTIVE: Mr. Santamaria is doing well. Denies any complaints. Resting in bed. Discussed with nursing. OBJECTIVE: VITAL SIGNS: He is afebrile. Heart rate is 118, respirations 20, oxygen saturation 96% on room air, blood pressure 131/73. CARDIOVASCULAR: S1-S2 plus. RESPIRATORY: Normal vesicular breath sounds. ABDOMEN: Soft, nontender. Bowel sounds heard in all quadrants. EXTREMITIES: Without cyanosis or clubbing. CENTRAL NERVOUS SYSTEM: Improving right-sided deficits. IMPRESSION: 1. Resolving fungal sinusitis and meningitis. 2. Communicating hydrocephalus, requiring FOUNTAIN MANAGER shunt placement. 3. 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 4. Hypertension. 5. Dyslipidemia. 6. Diabetes mellitus type 2. 7. Bilateral lower extremity deep venous thrombosis, requiring inferior vena cava filter placement. PLAN: 1. Continue current medications. 2. 1800-calorie heart healthy ADA diet. 3. Accu-Cheks with sliding scale coverage. 4. DVT prophylaxis, he is on Eliquis. 5. Decubitus precautions. 6. Stress ulcer prophylaxis. 7. Physical therapy and occupational therapy. 8. Routine laboratory values. Job ID: [id number]
[2019-12-15] MEDS: Metoprolol Tartrate 25 MG TAB PO SCH ×2 (08:34→20:47)
[2019-12-15] MEDS: Acetaminophen 500 MG TAB PO PRN (08:34)
[2019-12-15] MEDS: Voriconazole 50 MG TAB PO SCH ×2 (08:34→20:47)
[2019-12-15] MEDS: Amlodipine 5 MG TAB PO SCH ×2 (08:34→20:46)
[2019-12-15] MEDS: Docusate 100 MG CAP PO SCH ×2 (08:35→20:47)
[2019-12-15] MEDS: metFORMIN 500 MG TAB PO SCH (08:35)
[2019-12-15] MEDS: Apixaban 5 MG TAB PO SCH ×2 (08:35→20:47)
[2019-12-15] MEDS: Atorvastatin Calcium 20 MG TAB PO SCH (20:47)
[2019-12-16 05:19] LABS: #Basophils 0.1 thou/uL (0.0-0.2); #Eosinphils 0.2 thou/uL (0.0-0.7); #Monocytes 0.5 thou/uL (0.11-0.59); #Neutrophils 2.1 thou/uL (1.40-6.50); %Basophils 1.3 % (0.0-1.0); %Eosinophils 4.3 % (0.0-10.0); %Lymphocytes 26.5 % (21.0-51.0); %Monocytes 12.4 % (0.0-10.0); %Neutrophils 55.5 % (42.0-75.0); Hemoglobin 9.8 g/dL (14.0-18.0); Mean Corpuscular HGB CONC 31.9 g/dL (32.0-36.0); Mean Corpuscular Hemoglobin 28.6 pg (27.0-31.0); Mean Corpuscular Volume 89.5 fL (78.0-98.0); Mean Platelet Volume 7.2 fL (7.4-10.4); Platelet Count 273 thou/uL (130-400); Red Blood Cell (RBC) Count 3.42 mill/uL (4.70-6.10); White Blood Cell (WBC) Count 3.8 thou/uL (4.8-10.8)
[2019-12-16] MEDS: Ciprofloxacin 500 MG TAB PO SCH ×2 (05:25→20:56)
[2019-12-16 05:31] LABS: Anion Gap 13 mmol/L (10-20); BUN (Urea Nitrogen) 5 mg/dL (8.9-20.6); Calc. Creatinine Clearance 209 mL/min (70-130); Carbon Dioxide 26 mmol/L (22-29); Chloride 104 mmol/L (98-107); Estimated GFR-MDRD Greater than 90; Glucose 94 mg/dL (70-105); Potassium 3.5 mmol/L (3.5-5.1); Sodium 139 mmol/L (136-145)
[2019-12-16] MEDS: Voriconazole 50 MG TAB PO SCH ×2 (08:29→20:56)
[2019-12-16] MEDS: Docusate 100 MG CAP PO SCH ×2 (08:30→20:58)
[2019-12-16] MEDS: Amlodipine 5 MG TAB PO SCH ×2 (08:30→20:57)
[2019-12-16] MEDS: Apixaban 5 MG TAB PO SCH ×2 (08:30→20:58)
[2019-12-16] MEDS: Acetaminophen 500 MG TAB PO PRN (08:30)
[2019-12-16] MEDS: metFORMIN 500 MG TAB PO SCH (08:30)
[2019-12-16] MEDS: Metoprolol Tartrate 25 MG TAB PO SCH ×2 (08:31→20:57)
--- NOTE | 2019-12-16 09:16 | RAD ---
RIGHT ANKLE RADIOGRAPHS 2 VIEWS: DATE: 12/16/2019. PROVIDED CLINICAL HISTORY: Right foot pain. FINDINGS: No evidence for a fracture or other acute osseous abnormality. If there is persistent clinical fany rn, conservative management and followup imaging are advised. IMPRESSION: As above. POS: HERNANDO
--- NOTE | 2019-12-16 14:01 | PRG ---
DATE OF SERVICE: 12/16/2019 SUBJECTIVE: Mr. Santamaria is doing well. He apparently was complaining of right ankle pain and there was concern that he may have hurt it when he had a fall previously. X-ray was done, which does not show any osseous abnormality. OBJECTIVE: VITAL SIGNS: He is afebrile. Heart rate is 108, respirations 16, oxygen saturation 98% on room air, blood pressure 118/71. CARDIOVASCULAR SYSTEM: S1 and S2 plus. RESPIRATORY SYSTEM: Normal vesicular breath sounds. ABDOMEN: Soft and nontender. Bowel sounds heard in all quadrants. EXTREMITIES: Without cyanosis or clubbing. Edema to right leg, likely due to his DVT. CENTRAL NERVOUS SYSTEM: Improving right-sided deficits and much improved dysphasia. IMPRESSION: 1. Resolving fungal sinusitis and meningitis. 2. Left hemispheric cerebrovascular accident with improving right-sided deficits. 3. Bilateral lower extremity deep venous thrombosis, requiring inferior vena cava filter placement. 4. Communicating hydrocephalus, requiring MOTOR TEACHER shunt placement. 5. Hypertension. 6. Dyslipidemia. 7. Diabetes mellitus, type 2. PLAN: 1. Continue current medications. 2. 1800-calorie heart healthy ADA diet. 3. Accu-Cheks with sliding scale coverage. 4. DVT prophylaxis - he is on Eliquis. 5. Decubitus precautions. 6. Stress ulcer prophylaxis. 7. Continue physical therapy. 8. Discharge planning. 9. Routine laboratory values. Job ID: [id number]
[2019-12-16] MEDS: Atorvastatin Calcium 20 MG TAB PO SCH (20:58)
[2019-12-17] MEDS: Ciprofloxacin 500 MG TAB PO SCH ×2 (06:11→21:14)
[2019-12-17] MEDS: Voriconazole 50 MG TAB PO SCH ×2 (09:11→21:13)
[2019-12-17] MEDS: metFORMIN 500 MG TAB PO SCH (09:11)
[2019-12-17] MEDS: Docusate 100 MG CAP PO SCH ×2 (09:11→21:13)
[2019-12-17] MEDS: Amlodipine 5 MG TAB PO SCH ×2 (09:12→21:14)
[2019-12-17] MEDS: Metoprolol Tartrate 25 MG TAB PO SCH ×2 (09:12→21:13)
[2019-12-17] MEDS: Apixaban 5 MG TAB PO SCH ×2 (09:13→21:12)
[2019-12-17] MEDS: Acetaminophen 500 MG TAB PO PRN ×3 (09:25→21:14)
[2019-12-17] MEDS: Atorvastatin Calcium 20 MG TAB PO SCH (21:14)
[2019-12-18] MEDS: Ciprofloxacin 500 MG TAB PO SCH ×2 (05:56→20:57)
[2019-12-18] MEDS: Apixaban 5 MG TAB PO SCH ×2 (08:19→20:57)
[2019-12-18] MEDS: Docusate 100 MG CAP PO SCH ×2 (08:19→20:57)
[2019-12-18] MEDS: metFORMIN 500 MG TAB PO SCH (08:20)
[2019-12-18] MEDS: Metoprolol Tartrate 25 MG TAB PO SCH ×2 (08:20→20:57)
[2019-12-18] MEDS: Amlodipine 5 MG TAB PO SCH ×2 (08:20→20:57)
[2019-12-18] MEDS: Voriconazole 50 MG TAB PO SCH ×2 (08:21→20:56)
[2019-12-18] MEDS: Acetaminophen 500 MG TAB PO PRN ×2 (09:50→20:57)
--- NOTE | 2019-12-18 14:09 | PRG ---
DATE OF SERVICE: 12/18/2019 SUBJECTIVE: Mr. Santamaria is working with speech therapy. He is hoping to go home soon. I advised him that he has improved greatly, but he is still not ready to go home since he only has his mom to take care of him. I told him our goal is to try to keep him here working with therapy as he is continuing to improve if his insurance approves. OBJECTIVE: VITAL SIGNS: He is afebrile. Heart rate is 113, respirations 16, oxygen saturation 100% on room air, blood pressure 119/66. CARDIOVASCULAR: S1 and S2 plus. RESPIRATORY: Normal vesicular breath sounds. ABDOMEN: Soft, nontender. Bowel sounds heard in all quadrants. EXTREMITIES: Without cyanosis or clubbing. CENTRAL NERVOUS SYSTEM: Improving dysphasia and right-sided weakness. IMPRESSION: 1. Diabetes mellitus type 2. 2. Hypertension. 3. Dyslipidemia. 4. Bilateral lower extremity deep venous thrombosis. 5. Resolving fungal meningitis and sinusitis. 6. Left hemispheric CVA with right-sided weakness. 7. Communicating hydrocephalus requiring EYEWEAR MANUFACTURING TECH shunt placement. PLAN: 1. Continue current medications. 2. 1800 calorie heart healthy ADA diet. 3. Accu-Cheks with sliding scale coverage. 4. Monitor blood pressure and adjust medications. 5. Continue therapy. 6. Dyslipidemia. 7. Aspiration precautions. 8. Continue Eliquis. 9. Routine laboratory values. Job ID: [id number]
--- NOTE | 2019-12-18 14:12 | PRG ---
DATE OF SERVICE: 12/17/2019 SUBJECTIVE: Mr. Santamaria is doing well. Denies any complaints. Resting comfortably. Apparently, he is improving well with therapy. Unfortunately, insurance apparently has denied an extension, and I have a [id number] review with them for Tuesday. OBJECTIVE: VITAL SIGNS: The patient is afebrile. Heart rate is 102, respirations 18, oxygen saturation 97% on room air, blood pressure 125/79. CARDIOVASCULAR: S1 and S2 plus. RESPIRATORY: Normal vesicular breath sounds. ABDOMEN: Soft and nontender. Bowel sounds heard in all quadrants. EXTREMITIES: Without cyanosis or clubbing. CENTRAL NERVOUS SYSTEM: Improving right-sided weakness and dysphasia. IMPRESSION: 1. Resolving fungal meningitis and sinusitis. 2. Diabetes mellitus, type 2, new onset. 3. Hypertension. 4. Dyslipidemia. 5. Bilateral lower extremity deep venous thrombosis. 6. Communicating hydrocephalus requiring ventriculoperitoneal shunt placement. PLAN: 1. Continue current medications. 2. 1800-calorie heart-healthy ADA diet. 3. Accu-Cheks with sliding scale coverage. 4. DVT and stress ulcer prophylaxis - he is on Eliquis. 5. Decubitus precautions. 6. Physical therapy. 7. We will discuss with insurance about possibly getting them to approve his stay for extension. Apparently, doing well with therapy. I also informed the charge nurse recovery auditorspace sciences director/household appliance assembler to make sure they sent the updated therapy note. Job ID: [id number]
[2019-12-18] MEDS: Atorvastatin Calcium 20 MG TAB PO SCH (20:57)
[2019-12-19] MEDS: Ciprofloxacin 500 MG TAB PO SCH ×2 (05:31→20:36)
[2019-12-19] MEDS: Docusate 100 MG CAP PO SCH ×2 (08:49→20:36)
[2019-12-19] MEDS: metFORMIN 500 MG TAB PO SCH (08:49)
[2019-12-19] MEDS: Voriconazole 50 MG TAB PO SCH ×2 (08:49→20:36)
[2019-12-19] MEDS: Apixaban 5 MG TAB PO SCH ×2 (08:49→20:36)
[2019-12-19] MEDS: Amlodipine 5 MG TAB PO SCH ×2 (08:49→20:36)
[2019-12-19] MEDS: Metoprolol Tartrate 25 MG TAB PO SCH ×2 (08:49→20:35)
[2019-12-19] MEDS: Acetaminophen 500 MG TAB PO PRN (14:24)
[2019-12-19] MEDS: Atorvastatin Calcium 20 MG TAB PO SCH (20:36)
[2019-12-20] MEDS: Apixaban 5 MG TAB PO SCH ×2 (08:14→21:02)
[2019-12-20] MEDS: metFORMIN 500 MG TAB PO SCH (08:14)
[2019-12-20] MEDS: Voriconazole 50 MG TAB PO SCH ×2 (08:15→21:02)
[2019-12-20] MEDS: Amlodipine 5 MG TAB PO SCH ×2 (08:15→21:03)
[2019-12-20] MEDS: Metoprolol Tartrate 25 MG TAB PO SCH ×2 (08:15→21:03)
[2019-12-20] MEDS: Docusate 100 MG CAP PO SCH ×2 (08:15→21:03)
--- NOTE | 2019-12-20 12:53 | PRG ---
DATE OF SERVICE: 12/20/2019 SUBJECTIVE: Mr. Santamaria is doing well. His insurance approved him to stay till the 16th. He is improving with therapy and they are hoping that he can stay here longer. OBJECTIVE: VITAL SIGNS: He is afebrile. Heart rate is 112, respirations 18, oxygen saturation 96%, and blood pressure 118/78. CARDIOVASCULAR: S1, S2 plus. RESPIRATORY: Normal vesicular breath sounds. ABDOMEN: Soft, nontender. Bowel sounds heard in all quadrants. EXTREMITIES: Without cyanosis or clubbing. LABORATORY DATA: Blood sugars are 135, 98, 107, 118, and 119. IMPRESSION: 1. Improving right-sided deficits from his cerebrovascular accident. 2. Resolving fungal sinusitis and meningitis. 3. Much improved communicating hydrocephalus after ventriculoperitoneal shunt placement. 4. Diabetes mellitus type 2. 5. Dyslipidemia. 6. Hypertension. PLAN: 1. Continue current medications. 2. 1800-calorie heart healthy ADA diet. 3. Accu-Cheks with sliding scale coverage. 4. DVT prophylaxis, he is on Eliquis due to bilateral DVT. 5. Decubitus precaution. 6. Stress ulcer prophylaxis. 7. Physical therapy. 8. Discharge planning if his insurance refuses to prolong his stay. Job ID: [id number]
[2019-12-20] MEDS: Atorvastatin Calcium 20 MG TAB PO SCH (21:03)
[2019-12-21] MEDS: metFORMIN 500 MG TAB PO SCH (08:49)
[2019-12-21] MEDS: Voriconazole 50 MG TAB PO SCH ×2 (08:49→20:41)
[2019-12-21] MEDS: Docusate 100 MG CAP PO SCH ×2 (08:49→20:41)
[2019-12-21] MEDS: Amlodipine 5 MG TAB PO SCH ×2 (08:50→20:42)
[2019-12-21] MEDS: Apixaban 5 MG TAB PO SCH ×2 (08:50→20:41)
[2019-12-21] MEDS: Metoprolol Tartrate 25 MG TAB PO SCH ×2 (08:50→20:39)
--- NOTE | 2019-12-21 09:10 | PRG ---
DATE OF SERVICE: 12/19/2019 SUBJECTIVE: Mr. Santamaria is doing the same. Denies any complaints. Resting comfortably, improving with therapy with his insurance this afternoon. OBJECTIVE: VITAL SIGNS: He is afebrile. Heart rate is 116, blood pressure 121/72, oxygen saturation 97% on room air. CARDIOVASCULAR: S1, S2 plus. Sinus tachycardia. RESPIRATORY: Normal vesicular breath sounds. ABDOMEN: Soft, nontender. Bowel sounds heard in all quadrants. EXTREMITIES: Without cyanosis or clubbing. Trace edema, right leg. CENTRAL NERVOUS SYSTEM: Improving right-sided weakness. IMPRESSION: 1. Diabetes mellitus, type 2. 2. Hypertension. 3. Dyslipidemia. 4. Bilateral deep venous thrombosis. 5. Resolving fungal meningitis and sinusitis. 6. Improving deficits from his left hemispheric CVA and much improved cognition, status post DATABASE ADMINISTRATION MANAGER shunt placement for his communicating hydrocephalus. PLAN: 1. Continue current medications. 2. 1800-calorie heart healthy ADA diet. 3. Accu-Cheks with sliding scale coverage. 4. Continue Eliquis. 5. Continue therapy. 6. Routine laboratory values. Job ID: [id number]
--- NOTE | 2019-12-21 10:11 | HP ---
SUBJECTIVE: Mr. Santamaria is doing well. Denies any complaints. Tolerating his medications and his therapy. Discussed with nursing. OBJECTIVE: VITAL SIGNS: He is afebrile. Heart rate 113, respirations 20, oxygen saturation 98% on room air, blood pressure 124/75. CARDIOVASCULAR: Sinus tachycardia. RESPIRATORY: Normal vesicular breath sounds heard in all lung cottrell. ABDOMEN: Soft, nontender. Bowel sounds heard in all quadrants. EXTREMITIES: Without cyanosis or clubbing. Trace edema, right leg. CENTRAL NERVOUS SYSTEM: Improving right-sided weakness and dysphasia. IMPRESSION: 1. Diabetes mellitus type 2. 2. Hypertension. 3. Dyslipidemia. 4. Resolving fungal meningitis and sinusitis. 5. Bilateral deep vein thrombosis requiring inferior vena cava filter placement. 6. Communicating hydrocephalus requiring ventriculoperitoneal shunt placement. 7. 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 PLAN: 1. Continue current medications. 2. 1800 calorie heart healthy ADA diet. 3. Accu-Cheks with sliding scale coverage. 4. Monitor neuro status. 5. DVT prophylaxis-he is on Eliquis. 6. Decubitus precaution. 7. Stress ulcer prophylaxis. 8. Continue PT/OT. 9. Discharge planning. 10. Dr. Dixon on-call this weekend. Job ID: [id number]
[2019-12-21] MEDS: Atorvastatin Calcium 20 MG TAB PO SCH (20:41)
[2019-12-22] MEDS: Voriconazole 50 MG TAB PO SCH ×2 (08:20→20:25)
[2019-12-22] MEDS: Docusate 100 MG CAP PO SCH ×2 (08:20→20:25)
[2019-12-22] MEDS: metFORMIN 500 MG TAB PO SCH (08:20)
[2019-12-22] MEDS: Apixaban 5 MG TAB PO SCH ×2 (08:20→20:26)
[2019-12-22] MEDS: Amlodipine 5 MG TAB PO SCH ×2 (08:20→20:25)
[2019-12-22] MEDS: Metoprolol Tartrate 25 MG TAB PO SCH ×2 (08:21→20:25)
[2019-12-22] MEDS: Atorvastatin Calcium 20 MG TAB PO SCH (20:26)
[2019-12-23 00:05] VITALS: BMI 22.0
[2019-12-23] MEDS: metFORMIN 500 MG TAB PO SCH (08:20)
[2019-12-23] MEDS: Apixaban 5 MG TAB PO SCH ×2 (08:21→20:17)
[2019-12-23] MEDS: Amlodipine 5 MG TAB PO SCH ×2 (08:21→20:17)
[2019-12-23] MEDS: Docusate 100 MG CAP PO SCH ×2 (08:21→20:16)
[2019-12-23] MEDS: Metoprolol Tartrate 25 MG TAB PO SCH ×2 (08:22→20:15)
[2019-12-23] MEDS: Voriconazole 50 MG TAB PO SCH ×2 (08:23→20:16)
[2019-12-23] MEDS ORDERED: Dextrose 50% Abboject 50 ML SYRINGE SLOW IVP PRN (17:49)
[2019-12-23] MEDS ORDERED: Dextrose 5% in Water 1,000 ML IV PRN (17:49)
[2019-12-23] MEDS: Atorvastatin Calcium 20 MG TAB PO SCH (20:17)
[2019-12-24] MEDS: metFORMIN 500 MG TAB PO SCH (09:08)
[2019-12-24] MEDS: Amlodipine 5 MG TAB PO SCH ×2 (09:08→21:03)
[2019-12-24] MEDS: Apixaban 5 MG TAB PO SCH ×2 (09:08→21:04)
[2019-12-24] MEDS: Docusate 100 MG CAP PO SCH ×2 (09:09→21:02)
[2019-12-24] MEDS: Metoprolol Tartrate 25 MG TAB PO SCH ×2 (09:09→21:03)
[2019-12-24] MEDS: Voriconazole 50 MG TAB PO SCH ×2 (09:10→21:02)
[2019-12-24] MEDS: HumaLOG 300 UNITS/3 ML VIAL SC PRN (09:21)
--- NOTE | 2019-12-24 09:38 | PRG ---
DATE OF SERVICE: 12/23/[address] Noreen Glover. SUBJECTIVE: The patient feels well, sitting up in bed, ready for more therapy. Alert, oriented, lucid, watching TV. OBJECTIVE: VITAL SIGNS: Show blood pressure of 117/79, temperature is 98, pulse 118, respirations 18, O2 saturations 97% on room air. LUNGS: Clear. CARDIAC: Showed regular rhythm. ABDOMEN: Soft and nontender. SKIN/EXTREMITIES: Showed no edema, clubbing, or cyanosis. NEUROLOGIC: Shows improving right-sided weakness. ASSESSMENT: 1. Resolving fungal meningitis. 2. Improving left hemispheric cerebrovascular accident with right hemiplegia. 3. Bilateral deep venous thrombosis, stable. 4. Hypertension, controlled to goal. PLAN: 1. Continue Accu-Cheks to monitor and titrate and control diabetes. 2. Continue anticoagulation with apixaban. 3. Continue PT and OT. 4. Continue to monitor vital signs closely. Job ID: [id number]
--- NOTE | 2019-12-24 19:21 | PRG ---
DATE OF SERVICE: 12/24/2019 SUBJECTIVE: Mr. Santamaria is up in his chair. He denies any complaints. He is happy with his progress. Discussed with nursing. OBJECTIVE: VITAL SIGNS: He is afebrile, heart rate 115, respirations 18, oxygen saturation 98% on room air, and blood pressure 134/78. CARDIOVASCULAR SYSTEM: S1 and S2 plus. RESPIRATORY SYSTEM: Normal vesicular breath sounds. ABDOMEN: Soft and nontender. Bowel sounds heard in all quadrants. EXTREMITIES: Without cyanosis or clubbing. IMPRESSION: 1. Resolving fungal meningitis and sinusitis. 2. Left hemispheric cerebrovascular accident with improving right-sided weakness. 3. Diabetes mellitus, type 2. 4. Hypertension. 5. Dyslipidemia. 6. Status post revision for communicating hydrocephalus. 7. Bilateral lower extremity deep vein thrombosis status post inferior vena cava filter placement. PLAN: 1. Continue current medications. 2. 1800-calorie, heart healthy diet. 3. Accu-Cheks with sliding scale coverage. 4. DVT prophylaxis, he is on Eliquis. 5. Decubitus precautions. 6. Stress ulcer prophylaxis. 7. Continue therapy. 8. Routine laboratory values. No family at bedside. Job ID: [id number]
[2019-12-24] MEDS: Atorvastatin Calcium 20 MG TAB PO SCH (21:04)
[2019-12-25 05:16] LABS: Hemoglobin 10.9 g/dL (14.0-18.0); Platelet Count 278 thou/uL (130-400)
[2019-12-25] MEDS: Voriconazole 50 MG TAB PO SCH ×2 (09:04→20:29)
[2019-12-25] MEDS: Metoprolol Tartrate 25 MG TAB PO SCH (09:04)
[2019-12-25] MEDS: metFORMIN 500 MG TAB PO SCH (09:05)
[2019-12-25] MEDS: Amlodipine 5 MG TAB PO SCH ×2 (09:05→20:29)
[2019-12-25] MEDS: Apixaban 5 MG TAB PO SCH ×2 (09:05→20:30)
[2019-12-25] MEDS: Docusate 100 MG CAP PO SCH ×2 (09:06→20:30)
--- NOTE | 2019-12-25 13:56 | PRG ---
DATE OF SERVICE: 12/25/2019 SUBJECTIVE: Mr. Santamaria is doing well up in his chair. Denies any complaints. His heart rate apparently went into the 170s with therapy. This morning, by the time they call me, it was back down to 103. The patient was asymptomatic. I advised Nursing to put in order to get an EKG. His heart rate was above 140 even with exertion. OBJECTIVE: VITAL SIGNS: He is afebrile. Heart rate currently is 103, respirations 18, oxygen saturations 96% on room air, blood pressure 120/78. CARDIOVASCULAR: S1 and S2 plus. RESPIRATORY: Normal vesicular breath sounds. ABDOMEN: Soft, nontender. Bowel sounds heard in all quadrants. EXTREMITIES: Without cyanosis or clubbing. Improving right-sided weakness. IMPRESSION: 1. Resolving fungal sinusitis and meningitis. 2. Diabetes mellitus type 2. 3. Hypertension. 4. Dyslipidemia. 5. Left hemispheric cerebrovascular accident with improving right-sided weakness. 6. Bilateral deep venous thrombosis and sinus tachycardia. PLAN: 1. Check EKG when his heart rate gets above 140. 2. Continue current medications. 3. 1800 calorie heart healthy ADA diet. 4. Accu-Cheks with sliding scale coverage. 5. DVT prophylaxis. He is on Eliquis. 6. Decubitus precautions. 7. Stress ulcer prophylaxis. 8. Change the timing on his metoprolol to 6:00 in the morning. Job ID: [id number]
[2019-12-25] MEDS: Atorvastatin Calcium 20 MG TAB PO SCH (20:29)
[2019-12-25] MEDS ORDERED: Metoprolol Tartrate 25 MG TAB PO SCH (21:00)
[2019-12-26] MEDS ORDERED: Metoprolol Tartrate 25 MG TAB PO SCH (06:00)
[2019-12-26] MEDS: metFORMIN 500 MG TAB PO SCH (08:54)
[2019-12-26] MEDS: Voriconazole 50 MG TAB PO SCH ×2 (08:55→21:04)
[2019-12-26] MEDS: Apixaban 5 MG TAB PO SCH ×2 (08:55→21:03)
[2019-12-26] MEDS: Docusate 100 MG CAP PO SCH ×2 (08:55→21:04)
[2019-12-26] MEDS: Amlodipine 5 MG TAB PO SCH ×2 (08:55→21:03)
--- NOTE | 2019-12-26 13:46 | PRG ---
DATE OF SERVICE: 12/26/2019 SUBJECTIVE: Mr. Santamaria is doing well. Awaiting evaluation by [facility]. OBJECTIVE: VITAL SIGNS: He is afebrile, heart rate 101, respirations 18, oxygen saturation 97% on room air, blood pressure 112/67. CARDIOVASCULAR SYSTEM: S1 and S2 plus. RESPIRATORY SYSTEM: Normal vesicular breath sounds. ABDOMEN: Soft, nontender. Bowel sounds heard in all quadrants. EXTREMITIES: Without cyanosis or clubbing. CENTRAL NERVOUS SYSTEM: Improving right-sided weakness and dysphasia. IMPRESSION: 1. Resolving fungal sinusitis and meningitis. 2. Diabetes mellitus type 2. 3. Hypertension. 4. Dyslipidemia. 5. Recent left hemispheric cerebrovascular accident with right-sided weakness and bilateral lower extremity deep venous thrombosis. PLAN: 1. Continue current medications. 2. 1800 calorie heart healthy ADA diet. 3. Accu-Cheks with sliding scale coverage. 4. Continue Eliquis. 5. Physical therapy. 6. Await evaluation by [facility]. 7. Routine laboratory values. Job ID: [id number]
[2019-12-26] MEDS: Atorvastatin Calcium 20 MG TAB PO SCH (21:04)
[2019-12-27 05:50] LABS: Anion Gap 11 mmol/L (10-20); BUN (Urea Nitrogen) 6 mg/dL (8.9-20.6); Calc. Creatinine Clearance 181 mL/min (70-130); Calcium 9.5 mg/dL (7.8-10.44); Carbon Dioxide 28 mmol/L (22-29); Chloride 107 mmol/L (98-107); Estimated GFR-MDRD Greater than 90; Glucose 117 mg/dL (70-105); Potassium 4.4 mmol/L (3.5-5.1); Sodium 142 mmol/L (136-145)
[2019-12-27] MEDS: Amlodipine 5 MG TAB PO SCH ×2 (09:11→21:19)
[2019-12-27] MEDS: Docusate 100 MG CAP PO SCH ×2 (09:11→21:19)
[2019-12-27] MEDS: metFORMIN 500 MG TAB PO SCH (09:11)
[2019-12-27] MEDS: Apixaban 5 MG TAB PO SCH ×2 (09:11→21:20)
[2019-12-27] MEDS: Voriconazole 50 MG TAB PO SCH ×2 (09:12→21:19)
--- NOTE | 2019-12-27 13:24 | PRG ---
DATE OF SERVICE: 12/27/2019 SUBJECTIVE: Mr. Santamaria is doing well. He has been accepted to [facility] and the plan is for him to be discharged tomorrow. He is happy with his progress. OBJECTIVE: VITAL SIGNS: He is afebrile. Heart rate is 105, respirations are 16, oxygen saturation 98% on room air, and blood pressure 122/74. CARDIOVASCULAR SYSTEM: S1 and S2 plus. RESPIRATORY SYSTEM: Normal vesicular breath sounds. ABDOMEN: Soft and nontender. Bowel sounds heard in all quadrants. EXTREMITIES: Without cyanosis or clubbing. Trace edema, right leg. CENTRAL NERVOUS SYSTEM: Improving right-sided weakness. IMPRESSION: 1. Resolving fungal meningitis and sinusitis. 2. Communicating hydrocephalus requiring ANIMAL TRAPPER shunt placement. 3. Diabetes mellitus type 2, new onset. 4. Hypertension. 5. Dyslipidemia. 6. Bilateral lower extremity deep vein thrombosis. 7. 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 PLAN: 1. Continue current medications. 2. 1800-calorie heart healthy ADA diet. 3. Accu-Cheks with sliding scale coverage. 4. DVT prophylaxis-he is on Eliquis. 5. Decubitus precautions. 6. Stress ulcer prophylaxis. 7. Routine laboratory values. 8. Physical therapy. 9. Transfer to [facility] tomorrow. Job ID: [id number]
[2019-12-27] MEDS: Atorvastatin Calcium 20 MG TAB PO SCH (21:20)
[2019-12-28 08:12] VITALS: TEMP 97.4
[2019-12-28] MEDS: Amlodipine 5 MG TAB PO SCH (08:52)
[2019-12-28] MEDS: metFORMIN 500 MG TAB PO SCH (08:52)
[2019-12-28] MEDS: Docusate 100 MG CAP PO SCH (08:52)
[2019-12-28] MEDS: Apixaban 5 MG TAB PO SCH (08:52)
[2019-12-28] MEDS: Voriconazole 50 MG TAB PO SCH (08:52)
--- NOTE | 2019-12-28 09:18 | DIS ---
DATE OF ADMISSION: 12/01/2019 DATE OF DISCHARGE: 12/28/2019 PRINCIPAL DIAGNOSES: Resolving fungal meningitis and sinusitis. SECONDARY DIAGNOSES: 1. Diabetes mellitus, type 2, new onset, possibly related to his steroids. 2. Hypertension. 3. Dyslipidemia. 4. Left hemispheric cerebrovascular accident with improving right-sided weakness. 5. Bilateral lower extremity deep venous thrombosis requiring inferior vena cava filter placement. COMPLICATIONS: None. ADVERSE REACTIONS: None. PROCEDURES: None. CONSULTATIONS: Physical Therapy and Occupational Therapy. HOSPITAL COURSE: The patient was admitted initially with resolving fungal meningitis and sinusitis and left hemispheric cerebrovascular accident with right-sided weakness. Initially, he was able to talk only in one word and most of it was yes and it was not appropriate, but he showed significant improvement. Unfortunately, one day he was noticed to kind of regressing and so a stat CT brain was done which showed worsening communicating hydrocephalus. He was transferred to [facility] in [place] and underwent a CADDIE shunt placement. He was transferred back here and since then he has been progressing very well. He was felt to have reached maximum medical improvement here in this facility, but the therapy feels that he would be a good candidate for inpatient rehabilitation. He is not ready to go home yet. He is medically stable enough to tolerate 3 hours of therapy. He was noted to have significant sinus tachycardia and I have made adjustments to the timing of the medicine as well as made it extended-release and that seems to be helping. His blood sugars have remained stable. He remains on Eliquis and is tolerating his medications. PHYSICAL EXAMINATION: VITAL SIGNS: On the day of discharge, he is afebrile, heart rate is 111, respirations 20, oxygen saturation 98% on room air, blood pressure 127/81. CARDIOVASCULAR SYSTEM: S1, S2 plus sinus tachycardia. RESPIRATORY SYSTEM: Normal vesicular breath sounds. ABDOMEN: Soft, nontender. Bowel sounds heard in all quadrants. EXTREMITIES: Without cyanosis or clubbing. Trace right leg edema. CENTRAL NERVOUS SYSTEM: Awake and responsive. Cranial nerves 2 through 12 intact. Improving right-sided weakness and dysarthria. LABORATORY VALUES: H and H done on 12/24 which is 10.9 and 35.3. DISCHARGE MEDICATIONS: 1. Tylenol 500 q.6 p.r.n. 2. Norvasc 5 mg b.i.d. 3. Eliquis 5 mg b.i.d. 4. Lipitor 20 mg at bedtime. 5. Dulcolax 10 mg t.i.d. p.r.n. 6. Colace 100 mg b.i.d. 7. Mild sliding scale coverage with Humalog as well as bedtime sliding scale. 8. Metformin 500 mg in the morning. 9. Toprol-XL 25 mg b.i.d., but it is to be given at 6 in the morning and 6 at night. 10. MiraLAX 17 g in 8 ounces of water daily and voriconazole 200 mg p.o. b.i.d. This is a medication that he needs to be on for at least the next few months per Dr. Duarte. Paperwork done for him to go to [facility]. I will be following him over there as well as a medical consult. For full details please see chart. Job ID: [id number]
[2019-12-28 15:31] VITALS: BP 108/65
== END 2019-12-28 13:37 | DRG 98 ==
LOC: NAV ACUTE 17:54
PROVIDERS: ADMIT Internal Medicine; ATTEND Internal Medicine
DX: B37.5 Candidal meningitis (principal); I69.354 Hemiplegia and hemiparesis following cerebral infarction affecting left non-dominant side; G91.9 Hydrocephalus, unspecified; I82.4Z3 Acute embolism and thrombosis of unspecified deep veins of distal lower extremity, bilateral; N39.0 Urinary tract infection, site not specified; J32.9 Chronic sinusitis, unspecified; I10 Essential (primary) hypertension; R13.10 Dysphagia, unspecified; B96.1 Klebsiella pneumoniae [K. pneumoniae] as the cause of diseases classified elsewhere; R53.81 Other malaise; E11.9 Type 2 diabetes mellitus without complications; E78.5 Hyperlipidemia, unspecified; Z79.4 Long term (current) use of insulin; I69.391 Dysphagia following cerebral infarction; Z98.2 Presence of cerebrospinal fluid drainage device
CPT/HCPCS: 36415; 36416; 71045; 80048; 80053; 81001; 83605; 85014; 85018; 85025; 85049; 87040; 87077; 87086; 87186; 90471; 90670; G0009